=== PATIENT | male | born 1945 | race American Indian/Alaskan Native ===

== ENCOUNTER 2018-01-16 09:33 | Day surgery (SDC) | payer MEDICARE, BC ==
[~2018-01-16] VITALS: Ht 157.5 cm; Wt 72.7 kg
[~2018-01-16 09:33] MED LIST: ASPI81EC PO; BENAML10/2 PO; BENAML10/5 PO; ESZO3 PO; HYDROCODON-ACE1 EACH PO; LEVSOD150 PO; Levothyroxine200 MCG PO; MELO7.5 PO; NYST100SU SS; NYST100TC PO; OFLO.3OTSO BOTHEARS; ONDA4ODT MM; PARO20 PO; ROSU10TA; ROSU10TA PO; TIROSINT75 MCG PO; TOCO1000 PO; [UNRECOGNIZED DRUG - OTHER] PO
[2018-01-16] MEDS ORDERED: LEVSOD100 (09:56)
== END 2018-01-16 11:58 | disposition home or self-care (01) ==
LOC: ORSCSDS 09:33
PROVIDERS: Otolaryngology
PROC: 0D757ZZ Dilation of Esophagus, Via Natural or Artificial Opening (ICD-10-PCS; principal; 2018-01-16 10:45)
DX: K22.2 Esophageal obstruction (principal); I10 Essential (primary) hypertension; Z87.891 Personal history of nicotine dependence; Z79.899 Other long term (current) drug therapy
CPT/HCPCS: J1100; J2250; J3010; J7120

== ENCOUNTER 2018-03-14 09:42 | Day surgery (SDC) | payer MEDICARE, BC ==
[~2018-03-14] VITALS: Ht 177.8 cm; Wt 73.1 kg
[~2018-03-14 09:42] MED LIST changes: +LEVSOD100
[2018-03-14] MEDS ORDERED: LEVO-T150 MCG PO (10:13)
== END 2018-03-14 13:10 | disposition home or self-care (01) ==
LOC: ORSCSDS 09:42
PROVIDERS: Otolaryngology
PROC: 0D757ZZ Dilation of Esophagus, Via Natural or Artificial Opening (ICD-10-PCS; principal; 2018-03-14 11:15)
DX: K22.2 Esophageal obstruction (principal); Z93.0 Tracheostomy status; I10 Essential (primary) hypertension; Z85.21 Personal history of malignant neoplasm of larynx; Z87.891 Personal history of nicotine dependence; Z79.899 Other long term (current) drug therapy
CPT/HCPCS: J1100; J2250; J2405; J3010; J7120

== ENCOUNTER 2018-08-27 01:56 | Inpatient (IN) | payer MEDICARE, BC ==
[~2018-08-27] VITALS: Ht 167.6 cm; Wt 73.4 kg
[~2018-08-27 01:56] MED LIST changes: -BENAML10/5 PO; +LEVO-T150 MCG PO; +Lotrel 10-20 M1 EACH PO
[2018-08-27 02:09] LABS: PCO2 Arterial 46.6 mmHg (35-45); PO2 Arterial 269 mmHg (80-100); pH Blood Arterial 7.24 (7.35-7.45)
[2018-08-27 02:10] LABS: Chloride (POC) 101 mmol/L (98-108); Creatinine (POC) 1.7 mg/dL (0.8-1.3); Glucose (ISTAT POC) 101 mg/dL (70-99); Hemoglobin (POC) 16.7 g/dL (13.5-17.5); Potassium (POC) 4.5 mmol/L (3.5-5.5); Sodium (POC) 137 mmol/L (135-148); Total CO2 (POC) 22 mmol/L (21-32)
[2018-08-27 02:33] LABS: BASOPHILS ABSOLUTE AUTO 0.04 K/mm3 (0.00-0.23); BASOPHILS PERCENT AUTO 1 % (0-2); EOSINOPHILS ABSOLUTE AUTO 0.38 K/mm3 (0.00-0.68); EOSINOPHILS PERCENT AUTO 5 % (0-6); Hematocrit 42.6 % (37.0-53.0); Hemoglobin 14.3 g/dL (13.5-17.5); IMMATURE GRAN ABSOLUTE AUTO 0.02 K/mm3 (0.00-0.10); IMMATURE GRAN PERCENT AUTO 0 % (0-1); LYMPHOCYTES PERCENT AUTO 12 % (21-46); MONOCYTES ABSOLUTE AUTO 0.31 K/mm3 (0.16-1.47); MONOCYTES PERCENT AUTO 4 % (4-13); Mean Corpuscular HGB 31.8 pg (26.0-34.0); Mean Corpuscular HGB Conc 33.6 g/dL (31.5-36.5); Mean Corpuscular Volume 95 fL (80-100); Mean Platelet Volume 9.6 fL (9.1-12.4); NEUTROPHILS ABSOLUTE AUTO 5.84 K/mm3 (1.96-9.15); NEUTROPHILS PERCENT AUTO 78 % (41-73); Platelet Count 165 K/mm3 (150-400); RDW Coefficient Variation 14.6 % (11.7-14.2); RDW Standard Deviation 50.6 fL (35.1-46.3); White Blood Cell Count 7.49 K/mm3 (4.00-11.30)
[2018-08-27 02:53] LABS: Alanine Aminotransfer (ALT/SGP 158 U/L (12-78); Albumin, Blood 4.2 g/dL (3.4-5.0); Albumin/Globulin Ratio 1.2 (0.8-1.8); Alk Phos 378 U/L (50-136); Anion Gap 14 mmol/L (6-16); Aspartate Aminotrans (AST/SGOT 585 U/L (12-37); Bilirubin, Total 0.4 mg/dL (0.1-1.0); Blood Urea Nitrogen 34 mg/dL (8-24); Bun/Creatinine Ratio 19.4 (12.0-20.0); CO2, Blood 19 mmol/L (21-32); Calcium, Blood 8.3 mg/dL (8.5-10.1); Chloride, Blood 102 mmol/L (98-108); Creatinine, Blood 1.75 mg/dL (0.60-1.20); Globulin, Blood 3.6 g/dL (2.2-4.0); Glomerular Filtration Rate 41 (60-); Glucose, Blood 99 mg/dL (70-99); Potassium, Blood 4.6 mmol/L (3.5-5.5); Sodium, Blood 135 mmol/L (136-145); Total Protein, Blood 7.8 g/dL (6.4-8.2); Troponin I <0.015 ng/mL (0.000-0.040)
[2018-08-27] MEDS ORDERED: ANDROGEL2.5 GM TD (02:53)
[2018-08-27] MEDS ORDERED: PAROXETINE ER25 MG PO (02:53)
--- NOTE | 2018-08-27 05:00 | NUR ---
0403 PT ARRIVED TO ICU 7, CARE ASSUMED RESTLESS, CONSCIOUS, NONVERBAL, DOES NOT FOLLOW COMMANDS. WARM, DRY SPO2 > 90%. R ANKLE AREA IV WITH BLOOD RETURNED, FUSHES WELL, ED PERSONNEL UNABLE TO DRAW ENOUGH BLOOD FOR LAB SPEC. MONITOR SR.
--- NOTE | 2018-08-27 09:07 | NUR ---
PT REMAINS SEMI-ALERT, OPENS EYES TO VERBAL STIM W/ STORT PERIODS EYE CONTACT, NO TRUE RESPONSE TO SIMPLE COMMANDS. CORRECTED HEART RHYTHM INTERPRETATION IS AFIB W CONTROLLED VENTRICULAR RESPONSE. SBPs 90s. CBG AT 0645 = 60, D50 ONE AMP GIVEN IV, POST CBG > 120. SPONTANEOUS COUGH INCRASINGLY PRODUCTIVE THIN YELLOW, INITIALLY SUCTIONED TRACHEOSTOMY/ SENIOR CAREGIVER, COUGH STRONG, CLEARING SPUTUM TO PERISTOMAL AREA, REMOVED W 2X2 GAUZE. WARM HUMIDITY W/OUT SUPPLEMENTAL O2 CONTINUED, SPO2 > 90 WHEN WAVEFORM APPROPRIATE. IV D5 1/2NS + 40 KCL @ 100CC/HR, INCON'T X 2 CLEAR URINE. AM LACTATE LEVEL DRAWN AFTER MUCH DIFFICULTY.
--- NOTE | 2018-08-27 10:00 | NUR ---
ASSUMED CARE OF PATIENT PATIENT RESPONDS TO VERBAL STIMULI. PATIENT HAS DECREASED LOC, NONVERBAL. PATIENT HAS GROSS MOVEMENT OF EXTREMITIES. PATIENT HAS OCCASIONAL MUSCLE TWITCHES. EYES SEEM TO SHIFT SIDE TO SIDE OFF AND ON. PATIENT ON 21% HUMIFIED O2 TO OPEN STOMA VIA TRACH STOMA. PATIENT COUGHING UP LARGE AMOUNTS OF THIN, YELLOW SPUTUM. PATIENT SR TO ST, HR 90S TO 1-TEENS. PATIENT HYPOTENSIVE AND HAS BEEN GETTING NS BOLUSED BY PREVIOUS NURSE. GI WNL. PATIENT INCONTINENT OF URINE- ATTENDS IN PLACE. URINE YELLOW IN COLOR. SCATTERED SCABS TO BLES. D5W 1/2 NS KCL 40 INFUSING AT 100 MLS/ HOUR. BED LOW, CALL LIGHT IN REACH. WILL CONTINUE TO MONITOR PATIENT FREQUENTLY THROUGHOUT SHIFT.
[2018-08-27 10:47] LABS: Phosphorus, Blood 2.5 mg/dL (2.5-4.9)
[2018-08-27 11:20] LABS: PCO2 Arterial 32.7 mmHg (35-45); pH Blood Arterial 7.36 (7.35-7.45)
[2018-08-27 11:21] LABS: PO2 Arterial 42.6 mmHg (80-100)
--- NOTE | 2018-08-27 14:04 | NUR ---
PATIENT INTUBATED INTO TRACH.
--- NOTE | 2018-08-27 14:05 | NUR ---
CALLED AND INFORMED THAT DOCTOR IS GOING TO INTUBATE INTO STOMA AT THIS TIME.
[2018-08-27 14:14] LABS: Source, Urine Catheter
[2018-08-27 14:37] LABS: Bilirubin, Urine Neg (Neg); Blood, Urine 4+ (Neg); Glucose Qualitative, Urine Neg (Neg); Ketones, Urine Neg (Neg); Leukocyte Esterase, Urine Neg (Neg); Nitrite, Urine Neg (Neg); Protein, Urine Neg (Neg); Urobilinogen, Urine NORM (Normal)
[2018-08-27 14:52] LABS: Appearance, Urine Clear (Clear); Color, Urine Yellow (P-Yellow)
[2018-08-27 14:53] LABS: Bacteria Not Seen /hpf; Squamous Epithelial Cells Not Seen /hpf (Few)
[2018-08-27 14:54] LABS: White Blood Cells, Urine 0-2 /hpf (0-5)
[2018-08-27] MEDS ORDERED: PARO20 PO (15:22)
[2018-08-27] MEDS ORDERED: ESZO3 PO (15:23)
[2018-08-27] MEDS ORDERED: K-Dur20 MEQ PO (15:24)
--- NOTE | 2018-08-27 15:26 | NUR ---
NURSE UPATED DOCTOR ON PATIENT STATUS.
[2018-08-27 16:03] LABS: PCO2 Arterial 36.5 mmHg (35-45)
[2018-08-27 16:04] LABS: pH Blood Arterial 7.28 (7.35-7.45)
--- NOTE | 2018-08-27 17:05 | NUR ---
DR. MCCRAY NOTIFIED OF PATIENT'S BS OF 69. NO ORDER GIVEN AT THIS TIME. WILL CONTINUE TO MONITOR.
[2018-08-27 18:30] LABS: Hematocrit 33.2 % (37.0-53.0); Hemoglobin 11.2 g/dL (13.5-17.5)
--- NOTE | 2018-08-27 19:15 | NUR ---
ASSUMED CARE OF PT. PT ON MECHANICAL VENTILATION WITH HOME TRACH IN PLACE. VENT SETTINGS AC 14/500/12/100%. LEVOPHED @ 20 MCG/MIN, VASOPRESSIN 0.04 UNITS/MIN, EPINEPHRINE 2 MCG/MIN, D10 @150 ML/HR, AND NS @300 ML/HR. PT OPENS EYES TO VERBAL AND PAINFUL STIMULI BUT IS UNABLE TO FOLLOW COMMANDS. PT APPEARS PALE AND SKIN IS COOL TO THE TOUCH. JEFFREY TEMP PATENT AND DRAINING CLEAR YELLOW URINE. RIGHT SUBCLAVIAN CENTRAL LINE PATENT AND INFUSING. SEE FULL SHIFT ASSESSMENT.
--- NOTE | 2018-08-27 19:30 | NUR ---
SHIFT SUMMARY PATIENT REMAINS RESPONDING TO VERBAL STIMULI. PATIENT CONTINUES NOT TO FOLLOW ANY COMMANDS. PATIENT CONTINUES TO LOCALIZE MOVEMENTS. PATIENT CONTINUES TO BE NONVERBAL. PATIENT STARES AT PERSON ASKING QUESTIONS BUT DOES NOT TRY TO RESPOND IN ANY WAY. REPORTS THAT PATIENT IS NONVERBAL AT BASELINE BUT USUALLY USES GESTURES TO RESPOND. OCCASIONAL MUSCLE TREMORS AND NYSTAGMUS NOTED WHEN NURSE TOOK OVER SHIFT AROUND 1000- THIS HAS NOT BEEN NOTICED LATER IN SHIFT. REPORTS THAT PATIENT HAS CHRONIC BACK PAIN AND INSTEAD OF TAKING PAIN MEDICATIONS HAS BEEN DRINKING ALCOHOL AT HOME. PRN FENTANYL BEING GIVEN FOR PAIN. PATIENT HAD TMAX OF 99.3 DEGREES FAHRENHEIT. PATIENT ON 21% HUMIDIFIED O2 VIA TRACH COLLAR TO OPEN STOMA THIS AM. SATURATIONS 70S TO 80S T/O SHIFT. AFTER SPEAKING WITH , PATIENT INTUBATED. PATIENT ON AC 14, TV 500, PEEP 12, FIO2 100%. PEEP INCREASED FROM 8 TO 12 TO TRY AND INCREASE O2 SATS. 02 REMAINS IN 80S- DR. MCCRAY AWARE. DR. MCCRAY STATED O2 86% AND GREATER IS OKAY. LUNGS REMAINED CLEAR T/O, DIMINISHED IN LOWER LOBES. PATIENT HAS BEEN COUGHING UP LARGE AMOUNTS OF THIN, YELLOW SECRETIONS. PATIENT HAS BEEN SB TO ST THIS SHIFT. HR RANGED FROM 40S TO 1-TEENS. PATIENT HAS REMAINED HYPOTENSIVE MOST OF THE SHIFT. CENTRAL LINE AND PRESSORS STARTED DURING SHIFT. CVP OF 8-10. PULSES 1+ IN STRENGTH. SCDS IN PLACE. GI WNL. DATE OF LAST BM UNKNOWN. TEMP PROBE JEFFREY INSERTED DURING SHIFT- PATIENT HAD ADEQUATE AMOUNT OF YELLOW URINE OUT. URINE CULTURE SENT. NO CHANGE TO SKIN. D10 INFUSING AT 150 MLS/ HOUR, NS AT 300 MLS/ HOUR, LEVOPHED AT 20 MCG/ MINUTE, VASOPRESSIN AT 0.04 UNITS/ MINUTE, EPINEPHRINE AT 2 MCG/ KG/ MINUTE. ABDOMINAL US AND ECHO PERFORMED DURING SHIFT. BLOOD SUGARS HAVE REMAINED LOW T/O SHIFT. PATIENT RECEIVED [address] MCCRAY OKAY WITH BLOOD SUGARS OVER 60. PATIENT HAS NO SIGNS OF PAIN AT THIS TIME. BED LOW, CALL LIGHT IN REACH. WENT HOME FOR A LITTLE BUT STATED SHE WILL BE BACK TONIGHT. REPORT HAS BEEN GIVEN TO ARCHITECT NURSES.
[2018-08-27 20:57] LABS: PCO2 Arterial 38.7 mmHg (35-45); PO2 Arterial 106 mmHg (80-100); pH Blood Arterial 7.23 (7.35-7.45)
--- NOTE | 2018-08-27 23:12 | NUR ---
PT APPEARS MUCH MORE ALERT. PT SQUEEZED THIS NURSE'S HAND WITH HIS RIGHT HAND WHEN ASKED, AND SQUEEZED HIS 'S HAND WITH HIS LEFT HAND. PT OPENED HIS EYES AND MOVED HIS EYES TOWARD VERBAL STIMULI. PT'S WAS TALKING TO PT AND TELLING HIM SHE LOVED HIM AND PT APPEARED TO TRY TO MOUTH "I LOVE YOU" BACK.
[2018-08-28] MEDS ORDERED: DEXAMETHASONE BOTHEYES (00:29)
[2018-08-28] MEDS ORDERED: TOBRAMYCIN BOTHEYES (00:29)
--- NOTE | 2018-08-28 01:29 | NUR ---
SPOKE WITH DR MCCRAY REGARDING PT'S INCREASED URINARY OUTPUT. PT HAS HAD 3950 ML'S OF CLEAR YELLOW URINE THIS SHIFT SO FAR.
[2018-08-28 03:37] LABS: Hematocrit 33.7 % (37.0-53.0); Hemoglobin 11.8 g/dL (13.5-17.5); Mean Corpuscular HGB 32.2 pg (26.0-34.0); Mean Platelet Volume 10.2 fL (9.1-12.4); Platelet Count 142 K/mm3 (150-400); RDW Coefficient Variation 14.2 % (11.7-14.2); RDW Standard Deviation 48.4 fL (35.1-46.3); Red Blood Cell Count 3.67 M/mm3 (4.30-5.90); White Blood Cell Count 9.98 K/mm3 (4.00-11.30)
[2018-08-28 03:41] LABS: Mean Corpuscular Volume 92 fL (80-100)
[2018-08-28 03:56] LABS: BAND PERCENT MAN 39 % (0-8); BASOPHILS PERCENT MAN 0 % (0-2); EOSINOPHILS ABSOLUTE MAN 0.09 K/mm3 (0.00-0.68); EOSINOPHILS PERCENT MAN 1 % (0-6); LYMPHOCYTES ABSOLUTE MAN 0.49 K/mm3 (0.84-5.20); LYMPHOCYTES PERCENT MAN 5 % (21-46); METAMYELOCYTE ABSOLUTE MAN 0.09 K/mm3 (0.00-0.00); METAMYELOCYTE PERCENT MAN 1 % (0-0); MONOCYTES ABSOLUTE MAN 0.09 K/mm3 (0.16-1.47); MONOCYTES PERCENT MAN 1 % (4-13); MYELOCYTE ABSOLUTE MAN 0.09 K/mm3 (0.00-0.00); MYELOCYTE PERCENT MAN 1 % (0-0); NEUTROPHILS ABSOLUTE MAN 9.08 K/mm3 (1.96-9.15); SEG NEUTROPHILS PERCENT MAN 52 % (41-73); TOTAL CELLS COUNTED 100
[2018-08-28 04:25] LABS: Albumin, Blood 3.2 g/dL (3.4-5.0); Albumin/Globulin Ratio 1.2 (0.8-1.8); Bilirubin, Total 0.6 mg/dL (0.1-1.0); Bun/Creatinine Ratio 14.3 (12.0-20.0); Creatinine, Blood 1.47 mg/dL (0.60-1.20); Globulin, Blood 2.6 g/dL (2.2-4.0); Potassium, Blood 3.4 mmol/L (3.5-5.5)
[2018-08-28 04:43] LABS: Calcium, Blood 5.9 mg/dL (8.5-10.1); Total Protein, Blood 5.8 g/dL (6.4-8.2)
[2018-08-28 04:45] LABS: PCO2 Arterial 39.3 mmHg (35-45); PO2 Arterial 119 mmHg (80-100); pH Blood Arterial 7.35 (7.35-7.45)
[2018-08-28 05:00] LABS: Magnesium, Blood 1.2 mg/dL (1.6-2.4); Phosphorus, Blood 1.9 mg/dL (2.5-4.9)
--- NOTE | 2018-08-28 05:15 | NUR ---
SPOKE WITH DR MCCRAY REGARDING PT'S MORNING LAB RESULTS. VERBAL ORDERS RECEIVED AND ENTERED.
--- NOTE | 2018-08-28 06:33 | NUR ---
PT CONTINUES TO BE ON MECHANICAL VENTILATION AC 14/500/12/70%. PT'S ABG'S SHOW GOOD IMPROVEMENT AND FI02 WAS ABLE TO BE WEANED FROM 100% TO 70%. PT CONTINUES TO RESPOND TO VERBAL AND PAINFUL STIMULI AND ABLE TO MOSTLY FOLLOW COMMANDS. CBG'S IN THE UPPER 100'S TO LOW 200'S. RIGHT FEMORAL ART LINE, RIGHT SUBCLAVIAN CENTRAL LINE AND RIGHT HAND PERIPHERAL LINE INFUSING. TEMP JEFFREY PATENT AND DRAINING CLEAR, PALE YELLOW URINE. PT HAD 5350 ML OF URINARY OUTPUT THIS SHIFT. PT HAD ONE EPISODE OF VOMITING, WILL REQUEST DAYSHIFT TO INSERT NG OR OG TUBE TO PREVENT ASPIRATION. VASOPRESSIN RUNNING @ 0.04 UNITS/MIN, LEVOPHED 17 MCG/MIN, BICARB @ 75 ML/HR. WILL REPORT TO DAYSHIFT NURSE.
--- NOTE | 2018-08-28 07:45 | NUR ---
INITIAL ASSESSMENT PATIENT LYING IN BED QUIETLY UPON ENTERING ROOM. PATIENT HAS NO SIGNS OF PAIN OR DISCOMFORT. PATIENT HAS CORE TEMP OF 99.1 DEGREES FAHRENHEIT. PATIENT RESPONDS TO VERBAL STIMULI AND TRACKS WITH EYES. PATIENT IS NOT FOLLOWING COMMANDS AT THIS TIME. PATIENT NONVERBAL. ACCORDING TO , PATIENT IS NONVERBAL AND GESTURES AT BASELINE. + BABINSKI REFLEXES. GROSS MOVEMENTS OF ALL EXTREMITIES. PATIENT TRACHEALLY INTUBATED AND SATTING WELL ON AC 14, TV 500, PEEP 12, 70% FIO2. TRACH TUBE IS NON-FENESTRATED AND IS CUFFED, 6.0. LUNGS CLEAR T/O, LOWER LOBES DIMINISHED. MODERATE TO LARGE AMOUNTS OF THIN, ENG SPUTUM BEING SUCTIONED FROM TRACH. PATIENT IN NSR, HR IN THE 70S. BP HAS BEEN STABLE ON PRESSORS. PULSES 1+ IN STRENGTH. SCDS IN PLACE. ABDOMEN MILDLY DISTENDED WITH HYPOACTIVE BS. TEMP PROBE JEFFREY DRAINING LARGE AMOUNTS OF CLEAR, YELLOW URINE. SKIN COOL AND PALE. SCATTERED SCABS TO BLES. NS TKO, D10 AT 75 MLS/ HOUR, LEVOPHED AT 14 MCG/ MINUTE, VASOPRESSIN AT 0.04 UNITS/ MINUTE, EPINEPHRINE OFF, SODIUM BICARB AT 150 MLS/ HOUR. PATIENT RECIEVING MANY ELECTROLYTE REPLACEMENTS THIS AM AND IS HAS ALSO BEEN RECEIVING ANTIBIOTICS. LEFT SHORT TIME AGO. BED LOW, CALL LIGHT IN REACH. WILL CONTINUE TO MONITOR PATIENT FREQUENTLY THROUGHOUT SHIFT.
--- NOTE | 2018-08-28 08:00 | NUR ---
DR. WASHINGTON IN TO SEE PATIENT THIS AM. UPDATED ON PATIENT STATUS. NO ORDERS RECEIVED AT THIS TIME.
--- NOTE | 2018-08-28 09:58 | NUR ---
DR. MCCRAY IN TO SEE PATIENT. DOCTOR UPDATED ON PATIENT STATUS. INFORMED OF INCREASED BLOOD SUGARS, FIO2 OF 70% ON VENT, THAT PATIENT VOMITED LAST NIGHT, THAT D10 SHUT OFF, AND CURRENT PRESSORS INFUSING. ORDERS RECEIVED.
[2018-08-28 12:06] LABS: BASOPHILS ABSOLUTE AUTO 0.04 K/mm3 (0.00-0.23); BASOPHILS PERCENT AUTO 0 % (0-2); EOSINOPHILS PERCENT AUTO 1 % (0-6); Hematocrit 33.1 % (37.0-53.0); Hemoglobin 12.1 g/dL (13.5-17.5); Mean Corpuscular HGB 32.4 pg (26.0-34.0); Mean Corpuscular HGB Conc 36.6 g/dL (31.5-36.5); Mean Platelet Volume 10.2 fL (9.1-12.4); Platelet Count 133 K/mm3 (150-400); RDW Coefficient Variation 13.9 % (11.7-14.2); RDW Standard Deviation 45.1 fL (35.1-46.3); Red Blood Cell Count 3.73 M/mm3 (4.30-5.90); White Blood Cell Count 12.16 K/mm3 (4.00-11.30)
--- NOTE | 2018-08-28 12:20 | NUR ---
PATIENT RESTING QUIETLY IN BED WITH NO SIGNS OF PAIN. PATIETN SATTING WELL ON AC 14, TV 500, PEEP 12, FIO2 50%. SPUTUM HAS DECREASED IN QUANTITIY. HR IN THE 70S. BP STABLE ON LEVOPHED OF 12 MCG/ HOUR AND VASOPRESSIN AT 0.04 UNITS/ MINUTE. L PUPIL SLUGGISH IN REACTION. NO OTHER CHANGES TO NEURO STATUS. BS OF 161. NO OTHER CHANGES TO NOTE ON AT THIS TIME. WILL CONTINUE TO MONITOR.
[2018-08-28 12:29] LABS: IMMATURE GRAN ABSOLUTE AUTO 0.09 K/mm3 (0.00-0.10); IMMATURE GRAN PERCENT AUTO 1 % (0-1); LYMPHOCYTES PERCENT AUTO 6 % (21-46); MONOCYTES ABSOLUTE AUTO 0.16 K/mm3 (0.16-1.47); MONOCYTES PERCENT AUTO 1 % (4-13); Mean Corpuscular Volume 89 fL (80-100); NEUTROPHILS ABSOLUTE AUTO 11.07 K/mm3 (1.96-9.15); NEUTROPHILS PERCENT AUTO 91 % (41-73)
[2018-08-28 12:43] LABS: BAND PERCENT MAN 38 % (0-8); BASOPHILS PERCENT MAN 0 % (0-2); EOSINOPHILS ABSOLUTE MAN 0.24 K/mm3 (0.00-0.68); EOSINOPHILS PERCENT MAN 2 % (0-6); LYMPHOCYTES ABSOLUTE MAN 0.48 K/mm3 (0.84-5.20); LYMPHOCYTES PERCENT MAN 4 % (21-46); METAMYELOCYTE ABSOLUTE MAN 0.12 K/mm3 (0.00-0.00); METAMYELOCYTE PERCENT MAN 1 % (0-0); MONOCYTES PERCENT MAN 0 % (4-13); SEG NEUTROPHILS PERCENT MAN 55 % (41-73); TOTAL CELLS COUNTED 100
--- NOTE | 2018-08-28 16:28 | NUR ---
PATIENT BACK FROM ABDOMINAL CT. TOLERATED WELL.
--- NOTE | 2018-08-28 16:28 | NUR ---
PATIENT RESTING QUIETLY IN BED. VSS. NO ACUTE CHANGES. WILL CONTINUE TO MONITOR.
--- NOTE | 2018-08-28 19:10 | NUR ---
ASSUMING CARE OF PT AT THIS TIME. PT REPORT RECEIVED AT BEDSIDE WITH OFFGOING NURSE, LAWRENCE BOWEN. PT LAYING IN BED, INTUBATED. VS STABLE - SEE VS FS. PT DOES NOT APPEAR TO BE IN DISTRESS AT THIS TIME. NO FAMILY AT BEDSIDE. WILL REVIEW PLAN OF CARE.
--- NOTE | 2018-08-28 19:15 | NUR ---
ASSESSMENT PT CALM, RESPONDS TO VERBAL STIMULI, TRACKING VOICE, OPENS EYES TO VERBAL STIMULI, DOES NOT FOLLOW COMMANDS, DOES NOT NOD HEAD Y/N TO QUESTIONS, + BABINSKI. NO SEDATION. UNABLE TO ASSESS SENSATION. PT ROSARIO. GROSS, WEAK MOVEMENT NOTED. S/SX OF PAIN/DISCOMFORT NOTED (FACIAL GRIMACING AND RESTLESSNESS IN BED). MEDICATED WITH FENT PER PHYSICIAN'S ORDER / UTIILIZE NONPHARM METHODS. EEG SCHEDULED FOR TOMORROW. BEDBATH COMPLETED PRIOR TO ONCOMING SHIFT. LUNGS COARSE, DIMINISHED LOWER LOBES. TRACH. VENT SETTINGS: AC 14, TV 500, PEEP 10, FIO2 50%. MARGUERITE, RT PLANNING TO DECREASE PEEP. SUCTION VIA TRACH: SMALL AMOUNTS OF THIN YELLOW SECRETIONS. TEMP 99.0 - ROOM TEMP TURNED DOWN, BLANKETS OFF, FANS OFF. NSR. HR 70'S. BP STABLE - SEE VS FS. LEVOPHED DRIP 10 MCG/MIN - WILL TITRATE TO EFFECT. VASOPRESSING 0.04 UNITS/MIN - WILL TITRATE TO EFFECT. FAINT PULSES. COOL, PALE SKIN. HYPOACTIVE BT X4 QUADRANTS. ABD MILD DIST, SOFT, NONTENDER. NG IN PLACE. NG TO LIS: LIGHT YELLOW/GREEN SECRETIONS NOTED. ORAL CARE: MOD AMOUNTS OF LIGHT YELLOW SECRETIONS NOTED. F/C IN PLACE - YELLOW, CLEAR URINE NOTED. PIV X1. CENTRAL LINE RIGHT SUBCLAVIAN. ARTERIAL LINE RIGHT FEMORAL ARTERY.
--- NOTE | 2018-08-28 19:30 | NUR ---
SHIFT ASSESSMENT NO CHANGE IN NEURO STATUS T/O SHIFT. PATIENT CONTINUED TO FOLLOW VOICE. PATIENT RESUMES NOT FOLLOWING COMMANDS. PATIENT HAS GROSS MOVEMENT OF EXTREMITIES. PATIENT HAD TMAX OF 100 DEGREES FAHRENHEIT. PATIENT GIVEN PRN FENTANYL OT DURING SHIFT FOR FROWNING OF BROWS. PATIENT DOWN TO 50% FIO2 ON VENT AND PEEP OF 10 FROM 12. PATIENT HAVING SMALL AMOUNTS OF THIN, ENG SPUTUM FROM TRACH. SPUTUM FOUL SMELLING. PATIENT REMIANED IN NSR, HR 60S TO 80S. BP REMAINED STABLE ON PRESSORS. ABDOMEN HAS HYPOACTIVE BS. NG ATTACHED TO LIS- GREEN LIQUID DRAINING. PATIENT HAS VOMITUS COME UP THROUGH L NOSTRIL TWICE DURING SHIFT. TEMP PROBE JEFFREY DRAINING LARGE AMOUNTS OF CLEAR URINE. NO CHANGE TO SKIN. PATIENT REPOSITIONED T/O SHIFT. LEVOPHED INFUSING AT 10 MCG/ MINUTE, VASOPRESSIN AT 0.04 UNITS/ MINUTE, NS TKO, SODIUM BICARB AT 150 MLS/ HOUR. ABDOMINAL CT PERFORMED THIS SHIFT. PATIENT RECEIVED BED BATH. BLOOD SUGARS STABLE. BED LOW, FILIBERTO LIGHT IN REACH. REPORT GIVEN TO EXPERIENCED TRUCK DRIVER NURSE.
--- NOTE | 2018-08-28 21:00 | NUR ---
DR. MAHENDRA MCCRAY ORDERED ELECTROLYTE PROTOCOL, STAT LABS, AND AM LABS.
[2018-08-28 21:30] LABS: Albumin, Blood 3.5 g/dL (3.4-5.0); Anion Gap 12 mmol/L (6-16); Blood Urea Nitrogen 14 mg/dL (8-24); Bun/Creatinine Ratio 10.1 (12.0-20.0); CO2, Blood 32 mmol/L (21-32); Calcium, Blood 7.6 mg/dL (8.5-10.1); Chloride, Blood 79 mmol/L (98-108); Creatinine, Blood 1.38 mg/dL (0.60-1.20); Glomerular Filtration Rate 54 (60-); Glucose, Blood 143 mg/dL (70-99); Magnesium, Blood 1.3 mg/dL (1.6-2.4); Phosphorus, Blood 1.8 mg/dL (2.5-4.9); Potassium, Blood 3.1 mmol/L (3.5-5.5); Sodium, Blood 123 mmol/L (136-145)
--- NOTE | 2018-08-28 22:00 | NUR ---
DR. MCCRAY / ELECTROLYTE PROTOCOL ORDERED MAGNESIUM SULFATE 4,000 MG AND POTASSIUM PHOSHATE 30 MM PER ELECTROLYTLE PROTOCOL. VERIFIED MEDICATION ORDERS WITH JESSI REAL. CALLED DR MCCRAY AT [id number]. INFORMED DR. MCCRAY OF LABS. DR. MCCRAY ORDERED 500 ML NS BOLUS FOR DECREASING SODIUM. DR. MCCRAY INSTRUCTED TO REPEAT LABS AFTER COMPLETION OF MAGNESIUM SULFATE IVPB, POTASSIUM PHOS IVPB, AND NS BOLUS. WAITING FOR MEDICATIONS FROM PHARMACY AT THIS TIME.
--- NOTE | 2018-08-28 23:55 | NUR ---
PT CARE / VENT SETTINGS LUNGS CLEAR, LOWER LOBES DIMINISHED. COARSENESS CLEARS WITH SUCTION. SUCTION VIA TRACH: SMALL AMOUNTS OF THIN YELLOW SECRETIONS. MARGUERITE RT ATTEMPTED TO DECREASED PEEP TO 5 WHILE ON FIO2 50%. OXY SAT <90% WHILE ON AC 14, TV 500, PEEP 5, FIO2 50%. MARGUERITE RT INCREASED FIO2 65%, BUT OXY SAT REMAIEND <90%. MARGUERITE RT INCREASED PEEP 8, FIO2 REMAINS 65%, OXY SAT 90% AND GREATER AT THIS TIME. CURRENTLY, LUNGS CLEAR, LOWER LOBES DIMINISHED, WHEEZING NOTED. PER MARGUERITE RT - UNABLE TO COMPLETE SBT D/T PEEP 8, FIO2 65%. WILL CONT TO TITRATE FIO2 TO MAINTAIN SPO2.
--- NOTE | 2018-08-29 00:11 | NUR ---
PT CARE / VENT SETTINGS WHILE ON VENT SETTINGS: AC 14, TV 500, PEEP 8, AND FIO2 70%, OXYGEN SATURATION <90%. MARGUERITE, RT INCREASED PEEP TO 10, FIO2 70%. OXY SAT CURRENTLY 88% AND GREATER.
--- NOTE | 2018-08-29 04:38 | NUR ---
SHIFT ASSESSMENT NO ACUTE CHANGES NOTED T/O SHIFT. PT CALM, OCC AGITATION & RESTLESSNESS NOTED WITH PT CARE, RESPONDS TO VERBAL STIMULI, TRACKING VOICE, OPENS EYES TO VERBAL STIMULI, DOES NOT FOLLOW COMMANDS, + BABINSKI. NO SEDATION. PT ROSARIO. GROSS, WEAK MOVEMENT. OCC S/SX OF PAIN/DISCOMFORT NOTED (FACIAL GRIMACING AND RESTLESSNESS IN BED). CONT TO ASSESS FOR PAIN/DISCOMFORT AND MEDICATED WITH FENT PER PHYSICIAN'S ORDER / UTILIZED NONPHARM METHODS. LUNGS CLEAR, DIMINISHED LOWER LOBES. OCC WHEEZING. OCC COARSENESS NOTED THAT CLEARS WITH SUCTION. CURRENT VENT SETTINGS: AC 14, TV 500, PEEP 8, FIO2 35%. CONTINUED TO TITRATE FIO2 TO MAINTAIN SPO2. RR 14 TO 20'S T/O SHIFT. CONTINUED TO TITRATE FIO2 TO MAINTAIN SPO2 90% AND GREATER. TRACH MIGRATED OUT TOWARDS STOMA WITH TV <300. TREVON RT AND MARGUERITE RT INFORMED AND REPOSITIONED TRACH - SEE MARGUERITE RT NOTE. CURRENTLY, SUCTION VIA ETT IS MODERATE AMOUNTS OF THICK RED SECRETIONS. TMAX 100.0 - ROOM TEMP TURNED DOWN, BLANKETS OFF, FANS ON. NSR. HR 60'S TO 70'S. CONTINUED TO TITRATE LEVOPHED TO MAINTAIN BP. LEVOPHED DRIP 6 MCG/MIN - CONTINUED TO TITRATE TO EFFECT. VASOPRESSIN 0.04 UNITS/MIN - CONTINUED TO TITRATE TO EFFECT. FAINT PULSES. COOL, PALE SKIN. HYPOACTIVE BT X4 QUADRANTS. ABD MILD DIST, SOFT, NONTENDER. NG IN PLACE. NG TO LIS: LIGHT YELLOW/GREEN SECRETIONS NOTED SHIFT EXCEPT ORANGE SECRETIONS NOTED AFTER REPOSITIONING TRACH. F/C IN PLACE - YELLOW, CLEAR URINE NOTED. PIV X1. CL RIGHT SUBCLAVIAN. ARTIAL LINE RIGHT FEMORAL ARTERY. SODIUM BICARBONATE AT 150 ML/HR. NS TKO AT 10 ML/HR. CHEST XRAY COMPLETED. AM LABS COMPLETED - WAITING FOR RESULTS AT THIS TIME. WILL CONT TO MONITOR PT AND WILL PROVIDE BEDSIDE REPORT TO ONCOMING NURSE THIS AM.
[2018-08-29 04:44] LABS: BASOPHILS ABSOLUTE AUTO 0.04 K/mm3 (0.00-0.23); BASOPHILS PERCENT AUTO 0 % (0-2); EOSINOPHILS ABSOLUTE AUTO 0.11 K/mm3 (0.00-0.68); EOSINOPHILS PERCENT AUTO 1 % (0-6); Hematocrit 32.3 % (37.0-53.0); Hemoglobin 11.8 g/dL (13.5-17.5); IMMATURE GRAN PERCENT AUTO 2 % (0-1); LYMPHOCYTES ABSOLUTE AUTO 0.52 K/mm3 (0.84-5.20); LYMPHOCYTES PERCENT AUTO 4 % (21-46); MONOCYTES ABSOLUTE AUTO 0.12 K/mm3 (0.16-1.47); MONOCYTES PERCENT AUTO 1 % (4-13); Mean Corpuscular HGB 32.2 pg (26.0-34.0); Mean Corpuscular HGB Conc 36.5 g/dL (31.5-36.5); Mean Corpuscular Volume 88 fL (80-100); Mean Platelet Volume 10.2 fL (9.1-12.4); NEUTROPHILS PERCENT AUTO 92 % (41-73); Platelet Count 115 K/mm3 (150-400); RDW Coefficient Variation 13.6 % (11.7-14.2); RDW Standard Deviation 44.3 fL (35.1-46.3); Red Blood Cell Count 3.66 M/mm3 (4.30-5.90); White Blood Cell Count 12.39 K/mm3 (4.00-11.30)
[2018-08-29 05:01] LABS: Alanine Aminotransfer (ALT/SGP 83 U/L (12-78); Albumin, Blood 3.1 g/dL (3.4-5.0); Albumin/Globulin Ratio 1.1 (0.8-1.8); Alk Phos 149 U/L (50-136); Anion Gap 12 mmol/L (6-16); Aspartate Aminotrans (AST/SGOT 358 U/L (12-37); Bilirubin, Total 1.1 mg/dL (0.1-1.0); Blood Urea Nitrogen 12 mg/dL (8-24); Bun/Creatinine Ratio 9.8 (12.0-20.0); CO2, Blood 32 mmol/L (21-32); Calcium, Blood 7.5 mg/dL (8.5-10.1); Chloride, Blood 77 mmol/L (98-108); Creatinine, Blood 1.22 mg/dL (0.60-1.20); Globulin, Blood 2.9 g/dL (2.2-4.0); Glomerular Filtration Rate >60 (60-); Glucose, Blood 170 mg/dL (70-99); Magnesium, Blood 3.1 mg/dL (1.6-2.4); Phosphorus, Blood 3.4 mg/dL (2.5-4.9); Sodium, Blood 121 mmol/L (136-145)
--- NOTE | 2018-08-29 05:19 | NUR ---
DR. MCCRAY / ELECTROLYTE PROTOCOL ORDERED KCL 40 MEQ PER ELECTROLYTE PROTOCOL. VERIFIED KCL ORDER WITH JESSI OJEDA. CALLED DR. MCCRAY AT 0515. INFORMED DR. MCCRAY OF AM LABS. DR MCCRAY ORDERED 1L NS BOLUS FOR DECREASING SODIUM. DR. MCCRAY ORDERED REPEAT RENAL PANEL AFTER COMPLETION OF 1L NS BOLUS AND KCL IVPB. WAITING FOR VERIFICATION OF MEDICATIONS FROM PHARMACY AND WAITING FOR KCL IVPB FROM PHARMACY. INFORMED DR. MCCRAY OF MIGRATING TRACH - NO NEW ORDERS REGARDING TRACH AT THIS TIME.
--- NOTE | 2018-08-29 05:42 | NUR ---
BLOOD PRESSURE AUTOMATIC BLOOD PRESSURE TAKEN T/O SHIFT ON LEFT ARM TO COMPARE TO ARTERIAL LINE. AUTOMATIC SBP WAS 10-25 MMHG LOWER THAN ARTERIAL LINE READINGS.
--- NOTE | 2018-08-29 07:45 | NUR ---
DR. WASHINGTON IN ROOM TO SEE PATIENT.
--- NOTE | 2018-08-29 08:00 | NUR ---
INITIAL ASSESSMENT PATIENT RESTING QUIETLY IN BED UPON ENTERING ROOM. NO SIGNS OF PAIN OR DISCOMFORT. PATIENT RESPONDS TO VOICE BY LOOKING AT PERSON WHEN THEY ASK HIM TO OPEN HIS EYES. PATIENT IS NOT FOLLOWING ANY OTHER COMMANDS. PATIENT WEAK BUT HAS GROSS MOVEMENTS TO ALL EXTREMITIES. PATIENT NONVERBAL, WHICH IS BASELINE FOR HIM. + BABINKSI REFLEXES NOTED. PATIENT HAS TEMP OF 99.0 DEGREES FAHRENHEIT. PATIENT INTUBATED THROUGH NONFENESTRATED, CUFFED TRACH. NOT ON SEDATION. PATIENT SATTING WELL ON AC 14, TV 500, PEEP 8, FIO2 OF 35%. PATIENT HAVING MODERATE AMOUNT OF THICK, YELLOW SPUTUM FROM TRACH THIS AM. PATIENT IN NSR, HR 60S TO 80S. BP STABLE ON LEVOPHED AND VASOPRESSIN. SCDS IN PLACE. PULSES 1+ IN STRENGTH. ABDOMEN MILDLY DISTENDED, SOFT, NONTENDER, WITH HYPOACTIVE BS. NG TO LIS DRAINING RONNY COLORED FLUID. DATE OF LAST BM UNKNOWN. TEMP PROBE JEFFREY DRAINING LARGE AMOUNTS OF CLEAR YELLOW FLUID. PATIENT HAS SCATTERED SCABS TO BLES. SKIN COOL AND PALE. R HAND SWOLLEN FROM IV THAT INFILTRATED THIS AM. LEVOPHED INFUSING AT 2 MCG/ MINUTE, VASOPRESSIN AT 0.04 UNITS/ MINUTE, NS TKO X 2, SODIUM BICARB AT 150 MLS/ HOUR. PATIENT RECEIVING 40 MEQ KCL THIS AM FOR LOW POTASSIUM. BED LOW, CALL LIGHT IN REACH. WILL CONTINUE TO MONITOR PATIENT FREQUENTLY THROUGHOUT SHIFT.
--- NOTE | 2018-08-29 10:07 | NUR ---
DR. MAST IN ROOM TO SEE PATIENT.
--- NOTE | 2018-08-29 11:33 | NUR ---
DR. TANG IN ROOM TO SEE PATIENT AND TALK TO .
[2018-08-29 11:44] LABS: Magnesium, Blood 2.1 mg/dL (1.6-2.4); Phosphorus, Blood 2.3 mg/dL (2.5-4.9)
--- NOTE | 2018-08-29 12:02 | NUR ---
DR. TANG SPOKE TO DR. MAST AND PLACED ETT DOWN TRACH STOMA, 8.0. PATIENT TOLERATED WELL.
--- NOTE | 2018-08-29 12:30 | NUR ---
INFORMED THAT ETT NEEDS PULLED BACK [address] MAST CALLED AND NOTIFIED BY CHARGE NURSE.
--- NOTE | 2018-08-29 12:46 | NUR ---
PATIENT RESTING IN BED. NO SIGNS OF PAIN OR DISCOMFORT. TEMP OF 99.0 DEGREES FAHRENHEIT. VSS REMAIN STABLE. WILL CONTINUE TO MONITOR.
--- NOTE | 2018-08-29 12:49 | NUR ---
DR. TANG CALLED BY CHARGE NURSE- STATES RT CAN PULL ETT BACK 4 CM.
[2018-08-29 12:58] LABS: Sodium, Urine, Random 67 mmol/L (20-110)
[2018-08-29 13:03] LABS: Vancomycin, Trough 8.6 ug/mL (5.0-10.0)
[2018-08-29 13:16] LABS: BASOPHILS ABSOLUTE AUTO 0.03 K/mm3 (0.00-0.23); BASOPHILS PERCENT AUTO 0 % (0-2); EOSINOPHILS ABSOLUTE AUTO 0.09 K/mm3 (0.00-0.68); EOSINOPHILS PERCENT AUTO 1 % (0-6); Hematocrit 31.8 % (37.0-53.0); Hemoglobin 11.8 g/dL (13.5-17.5); IMMATURE GRAN ABSOLUTE AUTO 0.31 K/mm3 (0.00-0.10); IMMATURE GRAN PERCENT AUTO 3 % (0-1); LYMPHOCYTES ABSOLUTE AUTO 0.44 K/mm3 (0.84-5.20); LYMPHOCYTES PERCENT AUTO 4 % (21-46); MONOCYTES ABSOLUTE AUTO 0.09 K/mm3 (0.16-1.47); MONOCYTES PERCENT AUTO 1 % (4-13); Mean Corpuscular HGB 32.2 pg (26.0-34.0); Mean Corpuscular Volume 87 fL (80-100); NEUTROPHILS ABSOLUTE AUTO 11.33 K/mm3 (1.96-9.15); NEUTROPHILS PERCENT AUTO 92 % (41-73); Platelet Count 109 K/mm3 (150-400); RDW Coefficient Variation 13.4 % (11.7-14.2); RDW Standard Deviation 42.4 fL (35.1-46.3); Red Blood Cell Count 3.67 M/mm3 (4.30-5.90); White Blood Cell Count 12.29 K/mm3 (4.00-11.30)
[2018-08-29 13:18] LABS: Mean Corpuscular HGB Conc 37.1 g/dL (31.5-36.5)
--- NOTE | 2018-08-29 13:27 | NUR ---
ETT MARKED AT APPROXIMATELY 7 CM JUST OUTSIDE STOMA.
[2018-08-29 13:45] LABS: PCO2 Arterial 34.1 mmHg (35-45); pH Blood Arterial 7.53 (7.35-7.45)
[2018-08-29 13:46] LABS: PO2 Arterial 90.4 mmHg (80-100)
[2018-08-29 14:15] LABS: Osmolality, Urine 404 mos/kg (15-1400)
--- NOTE | 2018-08-29 14:33 | NUR ---
DR. HARDWICK HERE TO SEE PATIENT.
[2018-08-29 15:19] LABS: Anion Gap 12 mmol/L (6-16); Blood Urea Nitrogen 10 mg/dL (8-24); Bun/Creatinine Ratio 8.9 (12.0-20.0); CO2, Blood 25 mmol/L (21-32); Calcium, Blood 8.4 mg/dL (8.5-10.1); Chloride, Blood 84 mmol/L (98-108); Creatinine, Blood 1.12 mg/dL (0.60-1.20); Glomerular Filtration Rate >60 (60-); Glucose, Blood 108 mg/dL (70-99); Magnesium, Blood 1.9 mg/dL (1.6-2.4); Phosphorus, Blood 2.3 mg/dL (2.5-4.9); Potassium, Blood 2.7 mmol/L (3.5-5.5); Sodium, Blood 121 mmol/L (136-145)
--- NOTE | 2018-08-29 19:14 | NUR ---
SHIFT SUMMARY PATIENT HAD NO CHANGES IN NEURO STATUS. PATIENT SEEMS TO GRIMACE IF IN MORE PAIN TODAY- PRN PAIN MEDICATIONS GIVEN. RESTRAINTS REMOVED AT END OF SHIFT PATIENT HAS NOT BEEN GRABBING FOR TUBE OR LINES. PATIENT HAD TMAX OF 99.[address] TANG AND DR. HARDWICK CONSULTED ON PATIENT TODAY. PATIENT TRACH TUBE CHANGED TO 8.0 ETT DOWN TRACH STOMA BY DR. TANG. TUBE AT APPROXIMATELY 7 CM AT OUTSIDE OF STOMA. TV DECREASED FROM 500 TO 400 AND PATIENT SATTING WELL ON 35% FIO2. PATIENT BP STAYED STABLE ON PRESSORS. VASOPRESSIN DC'D PER DR. HARDWICK- PATIENT NOW JUST ON LEVOPHED FOR BP. CVP AT BEGINNING OF THE SHIFT WAS 4. PATIENT VOIDING OUT LARGE AMOUNTS OF CLEAR YELLOW URINE. NG HAD LESS FLUID OUT TODAY- ORANGE IN COLOR. PATIENT HAD NO EMESIS ON THIS SHIFT. PATIENT DID NOT HAVE BM THIS SHIFT. NO CHANGE IN SKIN. PATIENT REPOSITIONED T/O SHIFT. LEVOPHED INFUSING AT 12 MCG/ MINUTE, NS AT 150 MLS/ HOUR, NS TKO. PATIENT RECEIVED MANY ELECTROLYTE REPLACEMENTS DURING DAY. PATIENT ALSO RECEIVING ANTIBIOTICS. BLOOD SUGARS REMAINED STABLE. EEG PERFORMED. PATIENT HAD BED BATH. IN AND OUT DURING DAY- STATED SHE WILL GO HOME TO GET SOME REST AND BE BACK IN THE MORNING. BED LOW, CALL LIGHT IN REACH. REPORT HAS BEEN GIVEN TO ASSUMING NURSE, CECI GILL.
--- NOTE | 2018-08-29 19:15 | NUR ---
ASSUMING CARE OF PT AT THIS TIME. PT REPORT RECEIVED AT BEDSIDE WITH OFFGOING NURSE, LAWRENCE BOWEN. PT LAYING IN BED, INTUBATED. VS STABLE - SEE VS FS. PT DOES NOT APPEAR TO BE IN DISTRESS AT THIS TIME. WILL REVIEW PLAN OF CARE.
--- NOTE | 2018-08-29 19:30 | NUR ---
ASSESSMENT PT CALM, RESPONDS TO VERBAL STIMULI, TRACKING VOICE, OPENS EYES TO VERBAL STIMULI, DOES NOT FOLLOW COMMANDS, DOES NOT HEAD Y/N TO QUESTIONS, + BABINSKI. NO SEDATION. UNABLE TO ASSESS SENSATOIN. PT ROSARIO. GROSS, WEAK MOVMENT NOTED. S/SX OF PAIN/DISCOMFORT NOTED (FACIAL GRIMACING AND RESTLESSNESS IN BED). MEDICATED WITH FENT PER PHYSICIAN'S ORDER / UTILIZE NONPHARM METHODS. EGG COMPLETED THIS AM. BEDBATH COMPLETED PRIOR TO ONCOMING SHIFT. LUNGS COARSE, DIMINIHSHED LOWER LOBES. VENT SETTINGS: AC 14, TV 400, PEEP 8, FIO2 35%. PER REPORT, DR. TANG REMOVED TRACH TODAY AND INSERTED ETT VIA STOMA. OXY SAT >90%. RR 14. SUCTION VIA ETT: MOD THICK YELLOW. TEMP 99.0 - ROOM TEMP TURNED DOWN, BLANKETS OFF, FANS ON. NSR. HR 60'S. BP STABLE - SEE VS FS. LEVOPHED DRIP 14 MCG/MIN - WILL TITRATE TO EFFECT. VASOPRESSIN D/C THIS AM. FAINT PULSES. COOL, PALE SKIN. HYPOACTIVE BT X4 QUADRANTS. ABD MIDL DIST, SOFT, NONTENDER. NG IN PLACE. NG TO LIS: GREEN SECRETIONS NOTED. ORAL CARE: SMALL AMOUNTS OF SEROSANGENOUS FLUID. F/C IN PLACE - YELLOW, CLEAR URINE NOTED. CENTRAL LINE RIGHT SUBCLAVIAN. ARTERIAL LINE RIGHT FEMORAL ARTERY. NS AT 100 ML/HR. PER DR. HARDWICK - WILL INCREASE NS TO 150 ML/HR ONCE KCL IS COMPLETED). NS TKO AT 10 ML/HR. WILL COMPLETE RENAL PANEL ONCE KCL IS COMPLETED.
--- NOTE | 2018-08-29 21:00 | NUR ---
DR. MULU HARDWICK ORDERED STAT SODIUM LAB AT THIS TIME. DR. HARDWICK INSTRUCTED TO COMPLETE RENAL PANEL AFTER COMPLETION OF KCL IVPB AND ORDERED ELECTROLYTE REPLACEMENTS PER ELECTROLTYE PROTOCOL. WAITING FOR SODIUM LAB AT THS TIME AND WILL CONTACT DR. HARDWICK WITH LAB RESULT.
--- NOTE | 2018-08-29 22:03 | NUR ---
DR. HARDWICK CALLED DR. HARDWICK AT 2[address]. [address] HARDWICK OF SODIUM LAB RESULT. NO NEW ORDERS AT THIS TIME.
[2018-08-30 01:10] LABS: Anion Gap 10 mmol/L (6-16); Blood Urea Nitrogen 11 mg/dL (8-24); Bun/Creatinine Ratio 9.6 (12.0-20.0); CO2, Blood 28 mmol/L (21-32); Calcium, Blood 9.3 mg/dL (8.5-10.1); Chloride, Blood 91 mmol/L (98-108); Creatinine, Blood 1.15 mg/dL (0.60-1.20); Glomerular Filtration Rate >60 (60-); Glucose, Blood 91 mg/dL (70-99); Phosphorus, Blood 3.2 mg/dL (2.5-4.9); Potassium, Blood 3.8 mmol/L (3.5-5.5); Sodium, Blood 129 mmol/L (136-145)
[2018-08-30 03:38] LABS: BASOPHILS ABSOLUTE AUTO 0.03 K/mm3 (0.00-0.23); BASOPHILS PERCENT AUTO 0 % (0-2); EOSINOPHILS ABSOLUTE AUTO 0.07 K/mm3 (0.00-0.68); EOSINOPHILS PERCENT AUTO 1 % (0-6); Hematocrit 31.3 % (37.0-53.0); Hemoglobin 11.3 g/dL (13.5-17.5); IMMATURE GRAN ABSOLUTE AUTO 0.06 K/mm3 (0.00-0.10); IMMATURE GRAN PERCENT AUTO 0 % (0-1); LYMPHOCYTES ABSOLUTE AUTO 0.49 K/mm3 (0.84-5.20); LYMPHOCYTES PERCENT AUTO 3 % (21-46); MONOCYTES ABSOLUTE AUTO 0.19 K/mm3 (0.16-1.47); MONOCYTES PERCENT AUTO 1 % (4-13); Mean Corpuscular HGB 31.8 pg (26.0-34.0); Mean Corpuscular HGB Conc 36.1 g/dL (31.5-36.5); Mean Corpuscular Volume 88 fL (80-100); Mean Platelet Volume 10.6 fL (9.1-12.4); NEUTROPHILS ABSOLUTE AUTO 14.23 K/mm3 (1.96-9.15); NEUTROPHILS PERCENT AUTO 94 % (41-73); Platelet Count 117 K/mm3 (150-400); RDW Coefficient Variation 13.8 % (11.7-14.2); RDW Standard Deviation 44.8 fL (35.1-46.3); Red Blood Cell Count 3.55 M/mm3 (4.30-5.90); White Blood Cell Count 15.07 K/mm3 (4.00-11.30)
[2018-08-30 04:01] LABS: Magnesium, Blood 1.6 mg/dL (1.6-2.4); Uric Acid, Blood 2.2 mg/dL (3.5-7.2)
[2018-08-30 04:09] LABS: Alanine Aminotransfer (ALT/SGP 62 U/L (12-78); Albumin, Blood 2.9 g/dL (3.4-5.0); Alk Phos 127 U/L (50-136); Anion Gap 11 mmol/L (6-16); Aspartate Aminotrans (AST/SGOT 220 U/L (12-37); Bilirubin, Total 1.2 mg/dL (0.1-1.0); Blood Urea Nitrogen 10 mg/dL (8-24); Bun/Creatinine Ratio 8.2 (12.0-20.0); CO2, Blood 26 mmol/L (21-32); Calcium, Blood 8.9 mg/dL (8.5-10.1); Chloride, Blood 94 mmol/L (98-108); Creatinine, Blood 1.22 mg/dL (0.60-1.20); Globulin, Blood 2.8 g/dL (2.2-4.0); Glomerular Filtration Rate >60 (60-); Glucose, Blood 94 mg/dL (70-99); Phosphorus, Blood 3.2 mg/dL (2.5-4.9); Potassium, Blood 3.8 mmol/L (3.5-5.5); Sodium, Blood 131 mmol/L (136-145); Total Protein, Blood 5.7 g/dL (6.4-8.2)
--- NOTE | 2018-08-30 05:56 | NUR ---
SHIFT ASSESSMENT NO ACUTE CHANGES NOTED T/O SHIFT. PT CALM, RESPONDS TO VERBAL STIMULI, TRACKING VOICE, OPENS EYES TO VERBAL STIMULI, DOES NOT NOD HEAD Y/N TO QUESTIONS, ATTEMPTED TO MOUTH WORDS THIS AM, ABLE TO MOVES TOES UPON REQUEST ONE TIME T/O SHIFT, OTHERWISE PT DID NOT FOLLOW COMMANDS. NO SEDATION. UNABLE TO ASSESS SENSATION. PT ROSARIO. GROSS, WEAK MOVEMENT. OCC S/SX OF PAIN/DISCOMFORT NOTED T/O SHIFT (FACIAL GRIMACING AND RESTLESSNESS IN BED). CONT TO ASSESS FOR PAIN/DISCOMFORT AND MEDICATED WITH FENT PER PHYSICIAN'S ORDER / UTILIZED NONPHARM METHODS. PT ATTEMPTED PULL AT ETT THIS AM. PT PLACED IN BILAT WRIST RESTRAINTS TO PROTECT VITAL LINES/CORDS/TUBES AND TO PROTECT FROM SELF-EXTUBATION. LUNGS CLEAR, DIMINISHED LOWER LOBES. OCC COARSENESS NOTED THAT CLEARS WITH SUCTIONING. VENT SETTINGS: AC 14, TV 400, PEEP 8, FIO2 35%. ETT VIA STOMA. ETT OCC MIGRATED OUT OF STOMA. LIZ RT AND JESSI ORNELAS CONT TO REPOSIITION ETT T/O SHIFT. OXY SAT >90%. RR 14 TO 20'S. SX VIA ETT: THICK YELLOW SECREITONS. TMAX 99.7 - ROOM TEMP TURNED DOWN, BLANKETS OFF, FANS ON. SB TO NSR. HR 40'S TO 70'S. BP STABLE - SEE VS FS. LEVOPHED 6 MCG/MIN - CONTINUED TO TITRATE TO EFFECT. FAINT PULSES. COOL, PALE SKIN. HYPOACTIVE BT X4 QUADRANTS. ABD MILD DIST, SOFT, NONTENDER. NG IN PLACE. NG TO LIS: YELLOW TO GREEN COLORED SECRETIONS T/O SHIFT. ORAL CARE: SMALL AMOUNTS OF SEROSANGEOUS FLUID. F/C IN PLACE - YELLOW, CLEAR URINE NOTED. CL RIGHT SUBCLAVIAN. ARTERIAL LINE RIGHT FEMORAL ARTERY. NS AT 150 ML/HR. NS TKO AT 10 ML/HR X2. WILL CONT TO MONITOR PT AND WILL PROVIDE BEDSIDE REPORT TO ONCOMING NURSE THIS AM.
--- NOTE | 2018-08-30 08:00 | NUR ---
INITIAL ASSESSMENT PATIENT SLEEPING IN BED SOUNDLY UPON ENTERING ROOM. PATIENT WOKE TO VERBAL COMMAND. PATIENT FOLLOWING SIMPLE COMMANDS THIS MORNING. PATIENT WEAK. PATIENT TRIES TO MOUTH WORDS TO NURSE. PATIENT DENIES PAIN AT THIS TIME. PATIENT AFEBRILE. PATIENT SATTING WELL ON AC 14, TV 400, PEEP 8, FIO2 OF 35% THIS AM. ETT INTO TRACH STOMA, APPROXIMATELY OUT 7 CM AT EDGE OF STOMA. TUBE 8.0. BREATHS SHALLOW. LUNGS CLEAR THROUGHOUT, LOWER LOBES DIMINISHED. PATIENT SB TO SR, HR 50S TO 60S. BP STABLE ON LEVOPHED DRIP. PULSES 1+ IN STRENGTH. NO EDEMA NOTED. ABDOMEN MILDLY DISTENDED, NONTENDER, WITH NORMOACTIVE BS. NS TO LIS. TEMP PROBE JEFFREY DRAINING CLEAR YELLOW URINE- GOOD AMOUNT OF OUTPUT. SKIN PALE AND COOL TO TOUCH. SOME SCATTERED BRUISES NOTED. LEVOPHED INFUSING AT 7 MCG/ MINUTE, NS INFUSING AT 150 MLS/ HOUR, NS TKO X 2. BED LOW, CALL LIGHT IN REACH. WILL CONTINUE TO MONITOR PATIENT FREQUENTLY THROUGHOUT SHIFT.
--- NOTE | 2018-08-30 08:01 | NUR ---
DR. WASHINGTON IN TO SEE PATIENT. NO ORDERS RECEIVED.
--- NOTE | 2018-08-30 10:15 | NUR ---
DR. HARDWICK HERE TO SEE PATIENT AND TALK TO DR. MAST ABOUT PATIENT CARE. RT IN ROOM DOING SPONTANEOUS BREATHING TRAIL.
[2018-08-30 10:55] LABS: PCO2 Arterial 43.4 mmHg (35-45); pH Blood Arterial 7.41 (7.35-7.45)
--- NOTE | 2018-08-30 11:01 | NUR ---
JEVITY 1.5 STARTED AT 10 ML/ HOUR WITH 30 ML H20 FLUSH Q4H. WILL CONTINUE TO MONITOR.
--- NOTE | 2018-08-30 12:08 | NUR ---
PATIENT RESTING QUIETLY IN BED. PATIENT DENIES PAIN. PATIENT FOLLOWING COMMANDS. PATIENT AFEBRILE. VITAL SIGNS STABLE. LEVOPHED PLACED ON STANDBY. PATIENT ON PS 5/5 AT 35% FIO2. TF INFUSING AT 10 MLS/ HOUR, RESIDUAL OF 0. NO OTHER ACUTE CHANGES TO NOTE ON AT THIS TIME. BED LOW, CALL LIGHT IN REACH. WILL CONTINUE TO MONITOR.
[2018-08-30 13:07] LABS: BASOPHILS ABSOLUTE AUTO 0.03 K/mm3 (0.00-0.23); BASOPHILS PERCENT AUTO 0 % (0-2); EOSINOPHILS ABSOLUTE AUTO 0.16 K/mm3 (0.00-0.68); EOSINOPHILS PERCENT AUTO 1 % (0-6); Hematocrit 31.4 % (37.0-53.0); Hemoglobin 11.5 g/dL (13.5-17.5); IMMATURE GRAN ABSOLUTE AUTO 0.05 K/mm3 (0.00-0.10); IMMATURE GRAN PERCENT AUTO 0 % (0-1); LYMPHOCYTES ABSOLUTE AUTO 0.31 K/mm3 (0.84-5.20); LYMPHOCYTES PERCENT AUTO 3 % (21-46); MONOCYTES ABSOLUTE AUTO 0.11 K/mm3 (0.16-1.47); MONOCYTES PERCENT AUTO 1 % (4-13); Mean Corpuscular HGB 32.4 pg (26.0-34.0); Mean Corpuscular HGB Conc 36.6 g/dL (31.5-36.5); Mean Corpuscular Volume 89 fL (80-100); Mean Platelet Volume 11.1 fL (9.1-12.4); NEUTROPHILS ABSOLUTE AUTO 11.68 K/mm3 (1.96-9.15); NEUTROPHILS PERCENT AUTO 95 % (41-73); Platelet Count 112 K/mm3 (150-400); RDW Coefficient Variation 13.8 % (11.7-14.2); Red Blood Cell Count 3.55 M/mm3 (4.30-5.90); White Blood Cell Count 12.34 K/mm3 (4.00-11.30)
[2018-08-30 16:24] LABS: Magnesium, Blood 1.4 mg/dL (1.6-2.4); Phosphorus, Blood 2.7 mg/dL (2.5-4.9)
[2018-08-30 16:31] LABS: Anion Gap 8 mmol/L (6-16); Blood Urea Nitrogen 10 mg/dL (8-24); Bun/Creatinine Ratio 8.8 (12.0-20.0); CO2, Blood 26 mmol/L (21-32); Calcium, Blood 8.8 mg/dL (8.5-10.1); Chloride, Blood 98 mmol/L (98-108); Creatinine, Blood 1.14 mg/dL (0.60-1.20); Glomerular Filtration Rate >60 (60-); Glucose, Blood 124 mg/dL (70-99); Potassium, Blood 3.4 mmol/L (3.5-5.5); Sodium, Blood 132 mmol/L (136-145)
--- NOTE | 2018-08-30 17:00 | NUR ---
PATIENT PLACED BACK ON AC SETTINGS HAD APNEIC EPISODE FOR SEVERAL SECONDS.
--- NOTE | 2018-08-30 17:51 | NUR ---
DR. MAST CALLED ABOUT PATIENT'S LAB RESULTS. ORDERS RECEIVED.
--- NOTE | 2018-08-30 18:15 | NUR ---
TF INCREASED FROM 10 TO 20 MLS/ HOUR. WILL CONTINUE TO MONITOR.
--- NOTE | 2018-08-30 19:15 | NUR ---
ASSUMED CARE OF PT PT ON MECHANICAL VENTILATION VIA TRACH, VENT SETTINGS AC 14/400/5/35%. ET TUBE SIZE 8 DOWN TRACH AND SECURED VIA SUTURES. RIGHT FEMORAL ART LINE PATENT AND WNL. RIGHT SUBCLAVIAN CENTRAL LINE PATENT AND WNL. D5 @150 ML\HR, NS x2 RUNNING TKO. JEVITY 1.5 RUNNING AT 20 ML/HR WITH GOAL RATE OF 50 ML/HR WITH 30 ML Q4 FLUSH. PT OPENING EYES AND LOOKING TOWARD SOUND BUT IS NOT FOLLOWING DIRECTIONS. PT ABLE TO MOVE LEGS AND CROSS/UNCROSS THEM. SEE FULL SHIFT ASSESSMENT.
--- NOTE | 2018-08-30 19:32 | NUR ---
SHIFT SUMMARY PATIENT CONTINUED TO FOLLOW SIMPLE COMMANDS OFF AND ON DURING SHIFT. PATIENT ABLE TO NOD HEAD A COUPLE TIMES TO YES/ NO QUESTIONS AND TRY TO MOUTH WORDS TO NURSE. PATIENT REMAINS WEAK BUT HAS PURPOSEFUL MOVEMENTS OF EXTREMITIES. PATIENT REMAINED AFEBRILE. PATIENT HAD NO SIGNS OF PAIN THIS SHIFT, WHICH IS MUCH IMPROVEMENT FROM PREVIOUS DAY SHIFT. PATIENT NODDED NO TO PAIN TWO OF THE SEVERAL TIMES HE WAS ASKED DURING THE DAY. PATIENT SATTED WELL ON PS 5/5, 35% FROM APPROXIMATELY 0900 TO 1700. PATIENT HAD APNEIC EPISODE AROUND 1700 AND CHANGED BACK TO AC 14, PEEP 5, TV 400, 35% FIO2. PATIENT HAD SMALL AMOUNT OF WHITE, FROTHY SPUTUM SUCTIONED FROM TRACH STOMA ETT. PATIENT IN SB TO SR, HR MOSTLY 50S TO 60S. BP REMAINED STABLE ON LEVOPHED DRIP WHICH WAS EVENTUALLY ABLE TO BE PLACED ON STANDBY FOR THE REMAINDER OF THE SHIFT. PATIENT PLACED ON MIDODRINE. BPS HAVE BEEN STABLE SINCE. CVP OF 4 THIS SHIFT. JEVITY 1.5 STARTED AND IS NOW AT 20 MLS/ HOUR WITH 30 ML H20 FLUSH Q30M. RESIDUALS 0 TO 170 ML. JEFFREY DRAINING DARK YELLOW URINE. OUTPUT 2.6 LITERS THIS SHIFT. INPUT OF 2.6 IN WELL. NO CHANGE TO SKIN. PATIENT REPOSITIONED T/ O SHIFT. BLOOD SUGARS REMAINED STABLE. LEVOPHED ON SB, D5W INFUSING AT 150 MLS/ HOUR, NS TKO X 2. MAG AND POTASSIUM RIDERS INFUSING. PATIENT HAD BED BATH THIS SHIFT. IN AND OUT DURING DAY. PREACHER/ FRIEND CAME TO PRAY FOR PATIENT AND SPOKE WITH . WENT HOME SHORT TIME AGO BUT STATED SHE WOULD BE BACK TO SPEND THE NIGHT. BED LOW, CALL LIGHT IN REACH. REPORT GIVEN TO ASSUMING DRIVER EDUCATION ROAD INSTRUCTOR NURSES.
[2018-08-30 22:11] LABS: FREE INSULIN <1.0 uU/mL (.); TOTAL INSULIN <1.0 uU/mL (.)
[2018-08-30 23:41] LABS: Vancomycin, Trough 16.8 ug/mL (5.0-10.0)
--- NOTE | 2018-08-31 03:07 | NUR ---
SPOKE WITH DR MAST REGARDING PT'S VENT ALARMING. PT STACKING BREATHS SINCE BEGINNING OF SHIFT DESPITE BEING MEDICATED WITH VERSED AND FENTANYL PRN. WILL START PT ON PROPOFOL PER DR. MAST'S ORDER.
[2018-08-31 04:27] LABS: BASOPHILS ABSOLUTE AUTO 0.03 K/mm3 (0.00-0.23); BASOPHILS PERCENT AUTO 0 % (0-2); EOSINOPHILS ABSOLUTE AUTO 0.55 K/mm3 (0.00-0.68); EOSINOPHILS PERCENT AUTO 6 % (0-6); Hemoglobin 9.9 g/dL (13.5-17.5); IMMATURE GRAN ABSOLUTE AUTO 0.03 K/mm3 (0.00-0.10); IMMATURE GRAN PERCENT AUTO 0 % (0-1); LYMPHOCYTES ABSOLUTE AUTO 0.54 K/mm3 (0.84-5.20); LYMPHOCYTES PERCENT AUTO 6 % (21-46); MONOCYTES PERCENT AUTO 2 % (4-13); Mean Corpuscular HGB 32.5 pg (26.0-34.0); Mean Corpuscular HGB Conc 36.7 g/dL (31.5-36.5); Mean Corpuscular Volume 89 fL (80-100); Mean Platelet Volume 10.7 fL (9.1-12.4); NEUTROPHILS ABSOLUTE AUTO 7.64 K/mm3 (1.96-9.15); NEUTROPHILS PERCENT AUTO 85 % (41-73); Platelet Count 106 K/mm3 (150-400); RDW Coefficient Variation 13.9 % (11.7-14.2); Red Blood Cell Count 3.05 M/mm3 (4.30-5.90); White Blood Cell Count 8.99 K/mm3 (4.00-11.30)
[2018-08-31 04:44] LABS: Alanine Aminotransfer (ALT/SGP 48 U/L (12-78); Albumin, Blood 2.4 g/dL (3.4-5.0); Albumin/Globulin Ratio 0.9 (0.8-1.8); Alk Phos 144 U/L (50-136); Anion Gap 9 mmol/L (6-16); Aspartate Aminotrans (AST/SGOT 128 U/L (12-37); Bilirubin, Total 1.6 mg/dL (0.1-1.0); Blood Urea Nitrogen 9 mg/dL (8-24); CO2, Blood 24 mmol/L (21-32); Calcium, Blood 7.8 mg/dL (8.5-10.1); Chloride, Blood 96 mmol/L (98-108); Creatinine, Blood 1.12 mg/dL (0.60-1.20); Globulin, Blood 2.6 g/dL (2.2-4.0); Glomerular Filtration Rate >60 (60-); Glucose, Blood 165 mg/dL (70-99); Magnesium, Blood 1.5 mg/dL (1.6-2.4); Phosphorus, Blood 1.5 mg/dL (2.5-4.9); Potassium, Blood 3.5 mmol/L (3.5-5.5); Sodium, Blood 129 mmol/L (136-145)
--- NOTE | 2018-08-31 06:05 | NUR ---
SHIFT SUMMARY PT ON MECHANICAL VENTILATION VIA TRACH WITH ETT VIA STOMA. VENT SETTINGS 14/400/5/30%. PT "STACKED BREATHS" AND TRIGGERED VENT ALARM THROUGHOUT ENTIRETY OF SHIFT. PT HAD PERIOD OF BRADYCARDIA WITH HR LOW 29 AND HYPOTENSION ON OCCASION. RESTARTED LEVOPHED TO INCREASE BP, PT RESPONDED WELL TO MEDICATION AND BLOOD PRESSURE IS NOW STABLE WITH LEVOPHED ON STANDBY. PT SEEMS TO HAVE NEUROLOGICAL REGRESSION AND IS NOT ALERT OR ORIENTED AND FAILS TO FOLLOW COMMANDS. PUPILS SHIFTED FROM MIDLINE TO DOWNWARD WITH NYSTAGMUS. JEVITY 1.5 RUNNING AT 30 ML/HR WITH 30 ML FLUSH Q4, GOAL RATE OF 50 ML/HR. RESIDUALS HAVE BEEN BETWEEN 70-85. PT HAD BOWEL MOVEMENT DURING THIS SHIFT.NG HOOKED TO LIS. JEFFREY TEMP PATENT DRAINING YELLOW URINE. R SUBCLAVIAN CENTRAL LINE PATENT AND INFUSING. R FEMORAL ART LINE PATENT. CVP OF 3 DURING THIS SHIFT. POSSIBLE EXTUBATION THIS MORNING PER DR MAST. PT'S AT BEDSIDE. WILL REPORT TO DAYSHIFT NURSE.
--- NOTE | 2018-08-31 13:31 | NUR ---
REASSESSMENT: PT HAS BEEN RESTING QUIETLY THROUGHOUT THE MORNING. HE DOES NOT RESPOND TO VOICE. HE CLENCHES HIS JAW AND TRIES TO WITHDRAW FROM NOXIOUS STIMULI. HE HAS NYSTAGMUS. HE REMAINS VENTILATED. DR. MAST SWITCHED HIM TO SPONTANEOUS WITH PRESSURE SUPPORT OF 5, PEEP 5 AND PT DID WELL ON THAT THROUGOUT THE MORNING. ABOUT NOON PT'S VENT STARTED TO ALARM DUE TO PT HAVING FREQUENT RAPID FIRE SHALLOW BREATHS FOLLOWED BY 1 OR 2 DEEPER BREATHS. IT ALMOST APPEARS THAT PT'S ABDOMEN IS SPASMING, OR HICCUPING DURING THESE EPISODES. RT NOTIFIED AND DR. MAST AWARE OF BREATHING PATTERN AND IS OK WITH IT LONG PT IS MAINTAINING SATURATIONS, WHICH HE IS. LUNGS ARE COARSE IN THE BASES. THICK, ENG SPUTUM BEING SUCTIONED OUT OF TRACH. PT GOES BETWEEN A-FLUTTER AND SR. LEVOPHED RESTARTED THIS MORNING DUE TO HYPOTENSION, BUT IS NOW ONLY AT 2MCG/MIN. PT'S HAS BEEN IN AND OUT OF THE ROOM. SHE SPOKE WITH DR. MAST DURING ROUNDS. CONTINUING TO MONITOR.
--- NOTE | 2018-08-31 16:18 | NUR ---
SHIFT SUMMARY: PT HAS CONTINUED TO REST ON THE VENTILATOR THIS EVENING. NEUROLOGIC IS UNCHANGED WITH ONLY WITHDRAWAL TO NOXIOUS STIMULI. HIS LUNGS REMAIN COARSE, STILL GETTING LARGE AMTS OF THICK ENG SPUTUM. STILL GOING BETWEEN SR AND A FLUTTER. BP HAS BEEN STABLE ON THE SMALL DOSE OF LEVOPHED. JEFFREY WITH CLEAR YELLOW OUTPUT, 2 BMS TODAY. TUBE FEED RESIDUAL HAVE BEEN ABOUT 200ML, BUT PT IS NOT SHOWING ANY SIGNS OF ABDOMINAL DISCOMFORT AND BOWEL TONES ARE ACTIVE. PT'S HAS BEEN IN AND OUT OF THE ROOM THIS AFTERNOON. SHE HAS BEEN UDPATED WHEN SHE IS IN THE ROOM.
--- NOTE | 2018-08-31 17:49 | NUR ---
PT HAS HAD 3 BMS TODAY AND THEY GOT PROGRESSIVELY LOOSER. PT'S BOTTOM IS STARTING TO GET A LITTLE RED FROM ALL THE CLEANING SO RECTAL TUBE PLACED PER PROTOCOL FOR SKIN PROTECTION. PT TOLERATED PROCEDURE WELL. PT IS ALSO STARTING TO MOVE HIS EXTREMITIES WHEREAS ALL DAY HE DID NOT MOVE THEM AT ALL. HE IS STILL NOT FOLLOWING COMMANDS OR TRACKING WITH HIS EYES, BUT HIS NYSTAGMUS IS LESS SEVERE AND HE APPEARS TO BE TRYING TO OPEN HIS EYES WHEN HE HEARS SOUNDS IN THE ROOM.
--- NOTE | 2018-08-31 20:00 | NUR ---
PT ON VENT TO TRACH WITH ETT. ETT IS SUTURED IN PLACE BUT YOU ARE ABLE TO SEE CUFF OF ETT IN STOMA. PT HAS SOME IRREGULAR BREATHS THAT CAUSE THE VENT TO ALARM. IT ALMOST LOOKS LIKE PT IS HICCUPING. NO SEDATION AT THIS TIME. PT WILL TRY TO HOLD EYE'S CLOSED WHEN ASSESSING PUPILS AND WILL WITHDRAWL FROM NOXIOUS STIMULI. LS COARSE T/O AND HAS THICK ENG SPUTUM. HAS TF GOING AT 30ML/HR AND HAS NOT BEEN ADVANCED DUE TO HIGH RESIDUALS. SEE ASSESSMENTS.
--- NOTE | 2018-09-01 00:54 | NUR ---
PT IS STACKING BREATHS ON THE VENT WORSE THAN EARLIER IN THE SHIFT. TRIED GIVING VERSED AND IT DID NOT HELP. STARTED ON LOW DOSE OF PROPOFOL TO SEE IF THAT HELPS.
[2018-09-01 03:54] LABS: BASOPHILS ABSOLUTE AUTO 0.02 K/mm3 (0.00-0.23); BASOPHILS PERCENT AUTO 0 % (0-2); EOSINOPHILS ABSOLUTE AUTO 0.67 K/mm3 (0.00-0.68); EOSINOPHILS PERCENT AUTO 13 % (0-6); Hematocrit 27.5 % (37.0-53.0); IMMATURE GRAN ABSOLUTE AUTO 0.02 K/mm3 (0.00-0.10); IMMATURE GRAN PERCENT AUTO 0 % (0-1); LYMPHOCYTES ABSOLUTE AUTO 0.39 K/mm3 (0.84-5.20); LYMPHOCYTES PERCENT AUTO 7 % (21-46); MONOCYTES ABSOLUTE AUTO 0.31 K/mm3 (0.16-1.47); MONOCYTES PERCENT AUTO 6 % (4-13); Mean Corpuscular HGB 32.3 pg (26.0-34.0); Mean Corpuscular HGB Conc 36.4 g/dL (31.5-36.5); Mean Corpuscular Volume 89 fL (80-100); Mean Platelet Volume 10.8 fL (9.1-12.4); NEUTROPHILS ABSOLUTE AUTO 3.95 K/mm3 (1.96-9.15); NEUTROPHILS PERCENT AUTO 74 % (41-73); Platelet Count 101 K/mm3 (150-400); RDW Coefficient Variation 14.4 % (11.7-14.2); RDW Standard Deviation 46.4 fL (35.1-46.3); White Blood Cell Count 5.36 K/mm3 (4.00-11.30)
[2018-09-01 04:25] LABS: Alanine Aminotransfer (ALT/SGP 45 U/L (12-78); Albumin, Blood 2.4 g/dL (3.4-5.0); Albumin/Globulin Ratio 0.8 (0.8-1.8); Alk Phos 421 U/L (50-136); Anion Gap 9 mmol/L (6-16); Aspartate Aminotrans (AST/SGOT 105 U/L (12-37); Bilirubin, Total 1.3 mg/dL (0.1-1.0); Blood Urea Nitrogen 10 mg/dL (8-24); Bun/Creatinine Ratio 8.8 (12.0-20.0); CO2, Blood 26 mmol/L (21-32); Calcium, Blood 7.4 mg/dL (8.5-10.1); Chloride, Blood 98 mmol/L (98-108); Creatinine, Blood 1.14 mg/dL (0.60-1.20); Glomerular Filtration Rate >60 (60-); Glucose, Blood 143 mg/dL (70-99); Magnesium, Blood 1.6 mg/dL (1.6-2.4); Potassium, Blood 3.5 mmol/L (3.5-5.5); Sodium, Blood 133 mmol/L (136-145); Total Protein, Blood 5.4 g/dL (6.4-8.2)
[2018-09-01 05:51] LABS: PO2 Arterial 75.9 mmHg (80-100)
--- NOTE | 2018-09-01 06:30 | NUR ---
SUMMARY PT REMAINS ON SAME VENT SETTINGS. PT'S BREATHING PATTERN DID NOT CHANGE MUCH AFTER STARTING PROPOFOL AND IT WAS DROPPING HIS BP SO D/C'D AGAIN. STILL HAVING WHAT LOOKS LIKE ABDOMINAL SPASMS OR HICCUPS. GRIMACES AND WITHDRAWLS TO NOXIOUS STIMULI. NO ACUTE CHANGES.
--- NOTE | 2018-09-01 12:22 | NUR ---
REASSESSMENT: PT HAD REPEAT HEAD CT AND TOLERATED IT WELL. HE HAS BEEN OPENING HIS EYES SPONTANEOUSLY, ESPECIALLY WITH DISCOMFORT, BUT WON'T DO IT ON COMMANDS OR FOLLOW ANY OTHER COMMANDS. STILL HAS NYSTAGMUS. HE REMAINS ON THE VENTILATOR, SWITCHED TO SPONTANEOUS MODE THIS MORNING. HE DID WELL, UNTIL ABOUT 1130 WHEN HE STARTED DOING THE SAME BREATHING PATTERN YESTERDAY AFTERNOON WITH SEVERAL RAPID SHALLOW BREATHS IN BETWEEN DEEPER BREATHS. HE MAINTAINS HIS SATURATIONS AND DOES NOT LOOK LABORED. LUNGS ARE DIM. HE IS IN AFLUTTER, BP STABLE, SEE VITALS. ART LINE DC'D PER DR. MAST WITHOUT ANY COMPLICATIONS. JEFFREY DRAINING WELL AND RECTAL TUBE CONTINUES TO PUT OUT LIQUID STOOL. PT'S CAME IN AND WAS FULLY UPDATED BY NURSING STAFF. DISCUSSED CONCERNS ABOUT PT STILL NOT FOLLOWING COMMANDS AND IRREGULAR BREATHING PATTERNS. PALLIATIVE CARE CONSULT PLACED.
--- NOTE | 2018-09-01 16:57 | NUR ---
SHIFT SUMMARY: PT HAD NO ACUTE EVENTS THIS SHIFT. HIS ASSESSMENT REMAINS UNCHANGED FROM EARLIER ASSESSMENTS. TUBE FEED WAS INCREASED TO 40ML/HR THIS AFTERNOON BECAUSE PT HAD LESS THAN 50ML OF RESIDUAL TWO TIMES IN A ROW. CONTINUING TO MONITOR.
--- NOTE | 2018-09-01 21:24 | NUR ---
PT ON VENT TO STOMA WITH ETT SUTURED IN PLACE. SECURED WITH TRACH COLLAR WELL. PT WILL GRIMACE TO PAIN AND MOVES FEET AWAY FROM NOXIOUS STIMULUS. WILL MOVE FEET IN BED SPONTANEOUSLY WELL. SEE ASSESSMENT. R GROIN STABLE WHERE A LINE WAS REMOVED TODAY. CLEAR DRESSING OVER SITE.
[2018-09-02 03:58] LABS: BASOPHILS ABSOLUTE AUTO 0.02 K/mm3 (0.00-0.23); BASOPHILS PERCENT AUTO 0 % (0-2); EOSINOPHILS ABSOLUTE AUTO 0.48 K/mm3 (0.00-0.68); EOSINOPHILS PERCENT AUTO 11 % (0-6); Hematocrit 26.2 % (37.0-53.0); Hemoglobin 9.7 g/dL (13.5-17.5); IMMATURE GRAN ABSOLUTE AUTO 0.13 K/mm3 (0.00-0.10); IMMATURE GRAN PERCENT AUTO 3 % (0-1); LYMPHOCYTES ABSOLUTE AUTO 0.57 K/mm3 (0.84-5.20); LYMPHOCYTES PERCENT AUTO 13 % (21-46); MONOCYTES ABSOLUTE AUTO 0.53 K/mm3 (0.16-1.47); MONOCYTES PERCENT AUTO 12 % (4-13); Mean Corpuscular HGB 32.1 pg (26.0-34.0); Mean Corpuscular Volume 87 fL (80-100); Mean Platelet Volume 10.1 fL (9.1-12.4); NEUTROPHILS ABSOLUTE AUTO 2.73 K/mm3 (1.96-9.15); NEUTROPHILS PERCENT AUTO 61 % (41-73); Platelet Count 96 K/mm3 (150-400); RDW Coefficient Variation 14.4 % (11.7-14.2); RDW Standard Deviation 45.4 fL (35.1-46.3); Red Blood Cell Count 3.02 M/mm3 (4.30-5.90); White Blood Cell Count 4.46 K/mm3 (4.00-11.30)
[2018-09-02 04:15] LABS: Alanine Aminotransfer (ALT/SGP 39 U/L (12-78); Albumin, Blood 2.3 g/dL (3.4-5.0); Albumin/Globulin Ratio 0.7 (0.8-1.8); Alk Phos 535 U/L (50-136); Anion Gap 9 mmol/L (6-16); Aspartate Aminotrans (AST/SGOT 85 U/L (12-37); Bilirubin, Total 1.2 mg/dL (0.1-1.0); Blood Urea Nitrogen 9 mg/dL (8-24); Bun/Creatinine Ratio 9.1 (12.0-20.0); CO2, Blood 25 mmol/L (21-32); Calcium, Blood 7.1 mg/dL (8.5-10.1); Chloride, Blood 98 mmol/L (98-108); Creatinine, Blood 0.99 mg/dL (0.60-1.20); Globulin, Blood 3.3 g/dL (2.2-4.0); Glomerular Filtration Rate >60 (60-); Glucose, Blood 126 mg/dL (70-99); Magnesium, Blood 1.7 mg/dL (1.6-2.4); Phosphorus, Blood 1.9 mg/dL (2.5-4.9); Potassium, Blood 3.4 mmol/L (3.5-5.5); Sodium, Blood 132 mmol/L (136-145); Total Protein, Blood 5.6 g/dL (6.4-8.2)
[2018-09-02 04:17] LABS: Bicarbonate Venous 26.2 mmol/L (24.0-30.0); PCO2 Venous 37.6 mmHg (38-42); PO2 Venous 114 mmHg (38-42); pH Blood Venous 7.45 (7.34-7.37)
--- NOTE | 2018-09-02 06:20 | NUR ---
SUMMARY NO ACUTE CHANGES DURING THE NIGHT. INCREASED TF TO 50ML/HR BECAUSE RESIDUALS WERE MINIMAL. CALLED DR. MAST THIS AM ABOUT LOW PHOSPHOROUS, NEW ORDERS FOR KPHOS AND HUNG. AT BEDSIDE. NO SIGN OF DISTRESS.
--- NOTE | 2018-09-02 09:35 | NUR ---
PT OPENED EYES TO VOICE THIS AM. ABLE TO NOD HEAD APPROPRIATELY TO QUESTIONS. DENIES C/O PAIN. ABLE TO ONLY TWITCH FINGERS AND TOES WHEN ASKED TO MOVE EXT. PT IS PROFOUNDLY WEAK AND DECONDITIONED. AT BEDSIDE, PT LOOKING AT . PT ABLE TO OPEN MOUTH AND CLOSE EYES TO DIRECTION.
--- NOTE | 2018-09-02 11:26 | NUR ---
Initial Palliative Care visit and note: Case conferenced with RN and current update on status obtained. Pt is responsive and able to follow simple commands for the first time today. He is vented/trached via pre-existing stoma. Pt opened eyes when I placed my hand on his. He appears somnolent but tracked me with eyes as RN reported he was able to do with her this am. No nonverbal indicators of pain, anxiety, agitation or distress noted except when pt appeared to be trying to cough. This was reported to RT in ICU. was out of room during my assessment but RN called me back to the room when she returned. Spent time with , listening to what brought pt to hospital and discussing what his previously stated wishes were. states pt does not have a patent airway from the nose/mouth to remainder of upper airway and lower airway/lungs. He has had a stoma due to throat cancer, surgery and tx for same 15 years ago. She states if pt were to suffer brain injury he would not want to continue living on vent or off. She states they have spoken many times re: his advanced care wishes. She is very pleased that he has become more responsive and is hopeful this will continue. Spoke with her about doing what we can to encourage recovery, increased alertness and strenght as he recovers if this trend continues. very appreciative of supportive visit and conversation. 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 She is the palliative care nurse practitioner for her 84 year old father in her home also. She has friends who help as able but no other family members and she reports she and her family are estranged because none of them know how to "get along". Planned with Marisa to stop by in two days and reassess, discuss ongoing needs, questions re: advanced care planning. Instructed Marisa in nonverbal indicators for her to report to staff if noted. Pt responded to his with opening eyes, holding gaze when she was speaking to him.
--- NOTE | 2018-09-02 11:30 | NUR ---
TF OFF FOR 6 HOUR IN PREP FOR ULTRASOUND TO R/O CHOLECYSTITIS.
--- NOTE | 2018-09-02 13:15 | NUR ---
DR MAST IN TO SEE PT EARLIER, PT PLACED ON SPONT. PT HAVING PATRICIA HERRERA RESP. AND STACKING ON VENT. SATS 99%. DR MAST AWARE AND WANTS TO CONT SPON TRIAL. PT PLACED UP IN CHAIR W LIFT, PT FACING WINDOW. PT OCCASIONALLY WILL WAKE UP AND MAKE EYE CONTACT, THEN FALL BACK TO SLEEP, VERY DIFFICULT TO AROUSE WHEN ASLEEP.
--- NOTE | 2018-09-02 17:05 | NUR ---
dr nguyen notified of temp 101.9
--- NOTE | 2018-09-02 17:53 | NUR ---
TYLENOL GIVEN FOR TEMP 102
--- NOTE | 2018-09-02 18:04 | NUR ---
ICE PACKS PLACED UNDER ARMS AND AT GROIN. US OF ABD COMPLETE. TF RESTARTED AT 50CC/HR.
--- NOTE | 2018-09-02 19:00 | NUR ---
ASSUMING CARE OF PT AT THIS TIME. PT REPORT RECEIVED AT BEDSIDE WITH OFFGOING WITH OFFGOING NURSE, JOSE BOWEN. PT LAYING IN BED, SLEEPING UPON ENTERING THE ROOM. PT'S AT BEDSIDE. PT INTUBATED. PT HYPOTENSIVE WITH SBP IN 40'S TO 50'S. JESSI GARCIA CALLING DR. MAST AT THIS TIME. JESSI GARCIA STARTED 500 ML NS BOLUS AT THIS TIME. WILL REVIEW PLAN OF CARE.
--- NOTE | 2018-09-02 19:30 | NUR ---
ASSESSEMENT PT CALM, QUIET, COOPERATIVE, RESPONDS TO VEBRAL STIMULI, OPENS EYES TO VERBAL STIMULI, FOLLOWS COMMANDS, ATTEMPTS TO MOUTH WORDS, SMILING AT , NOT ON SEDATION, TRACKING VOICE, NODDING HEAD Y/N TO FEW QUESTIONS. INCREASED LOC NOTED AFTER STARTING LEVOPHED DRIP. ARNIE SENSATION. GROSS, WEAK MOVEMENT. PT ROSARIO. S/SX OF PAIN/DISCOMFORT NOTED. MEDICATED WITH PAIN MEDS PER PHYSICIAN'S ORDER / UTILIZED NONPHARM METHODS. UPPER AND MIDDLE LOBES COARSE, LOWER LOBES CLEAR AND DIMINISHED. ETT VIA STOMA. VENT SETTINGS: AC 14, TV 400, PEEP 4, FIO2 30%. RR 30'S. OXY SAT >90%. SUCTION VIA ETT: LARGE AMOUNTS OF THICK ENG SECRETIONS. TEMP 100.2 - BLANKETS OFF, ICE PACKS ON, FANS ON, ROOM TEMP TURNED DOWN. NSR WITH FIRST DEGREE AVHB. HR 80'S. LEVOPHED DRIP 20 MCG/MIN - WILL TITRATE TO EFFECT. BP STABLE AFTER TITRATING LEVOPHED DRIP - SEE VS FS. FAINT PULSES. EDEMA NOTED. COOL, PALE SKIN NOTED. HYPOACTIVE BT X4 QUADRANTS. MILD DIST, SOFT, NONTENDER. NG IN PLACE. JEVITY 1.5 AT GORAL RATE 50 ML/HR AND 30 ML FLUSH Q4 HR. RESIDUAL 10 ML/HR. F/C IN PLACE - YELLOW, CLEAR URINE NOTED. CL RIGHT SUBCLAVIAN. NS TKO AT 10 ML/HR.
--- NOTE | 2018-09-02 19:40 | NUR ---
WHILE GIVING REPORT TO CHAIR CAR DRIVER RN, PT'S BP DROPPED SIGNIFICANTLY W SBP 40'S AND DBP 30'S. HEART RATE DROPPED INTO 60'S, PT UNRESPONSIVE; WHICH WAS NOT TOO FAR OFF FROM HIS BASELINE. NS BOLUS STARTED WHILE DR MAST WAS CALLED, LEVOPHED RESTARTED PER DR'S ORDERS. PT'S BP RECOVERED W LEVOPHED AT 20MCG. PT AWOKE AND SMILED AT WHO WAS AT BEDSIDE SINCE 1900.
--- NOTE | 2018-09-02 19:50 | NUR ---
DR MAST / COMFORT CARE PT'S WANTS TO CHANGE PT'S CODE STATUS TO DNR AND ORDER COMFORT CARE SET. VERIFIED 'S WISHES WITH ARISTIDES REAL RN. INFORMED DR. MAST OF 'S WISHES FOR DNR STATUS AND COMOFRT CARE SET. DR. MAST ORDERED COMFORT CARE SET AND ORDERD DNR STATUS. PT'S WANTS TO SPEND SOME TIME WITH PT. THEN, THE WANTS TO EXTUBATE PT AND D/C LEVOPHED. WILL CONT TO TITRATE LEVOPHED TO EFFECT.
--- NOTE | 2018-09-02 21:35 | NUR ---
COMFORT CARE PT'S READY TO EXTUBATE PT. ATIVAN AND PAIN MEDS ADMINISTERED PRIOR TO EXTUBATION. JAKOB RT EXTUBATED PT AT 2134. LEVOPHED TURNED OFF AT 2133. CL - SL. PT'S AT BEDSIDE. WILL CONT TO ADMINISTER MEDICATIONS PER COMFORT CARE MEASURES.
--- NOTE | 2018-09-03 04:57 | NUR ---
SHIFT ASSESSMENT PT CHANGED TO COMFORT CARE STATUS THIS SHIFT. PT'S AT BEDSIDE. PT OCC ANXIETY (ATIVAN ADMINSITERED PRN), OCC RESPONDS TO VERBAL STIMULI, OTHERWISE PT RESPONDS TO PAINFUL STIMULI, OCC OPENS EYES SPONT, OCC FOLLOWS COMMANDS, OCC ATTEMPTS TO MOUTH WORDS, OCC SMILING AT AND STAFF, NOT ON SEDATION, TRACKING VOICE, NODDING HEAD Y/N TO FEW QUESTIONS. ARNIE SENSATION. GROSS, WEAK MOEVMENT. PT ROSARIO. OCC S/SX OF PAIN/DISCOMFORT. CONT TO ASSESS FOR PAIN/DISCOMFORT AND MEDICATED WITH PAIN MEDS PER PHYISICIAN'S ORDER / UTILIZED NONPHARM METHODS. UPPER AND MODDLE LOBES COARSE, LOWER LOBES CLEAR AND DIMINSIHED. PT EXTUBATED THIS SHIFT. PT ON RA. OXY SAT >90%. PATRICIA-HERRERA RESPIRATIONS NOTED. TMAX 100.6. SB TO NSR WITH BBB. HR 50'S TO 80'S. FAINT PULSES. EDEMA NOTED. COOL, PALE SKIN. HYPOACTIVE BT X4 QUADRANTS. NG IN PLACE. TF STOPPED. F/C IN PLACE - DARK YELLOW URINE NTOED. CL RIGHT SUBCLAVIAN - SL. WILL CONT TO MONITOR PT AND WILL PROVIDE BEDSIDE REPORT TO ONCOMING NURSE THIS AM.
--- NOTE | 2018-09-03 05:32 | NUR ---
DR. WASHINGTON / DR. HARDWICK / DR. TANG CALLED ANSWERSING SERVICE FOR DR. WASHINGTON, DR. CASEY, AND DR. TANG. UPDATED ANSWERING SERVICE OF PT'S CONDITION, DNR STATUS, AND COMFORT CARE MEASURES.
--- NOTE | 2018-09-03 11:38 | NUR ---
0800 SL ONLY OPENED EYES WITH REPOSITIONING THIS AM. NOW AIR HUNGER, RESP. DISTRESS OR PAIN NOTED. NO PRN COMFORT MEDS GIVEN. PT ORAL AND TRACH CARE DONE. RECTAL TUBE CONT TO MOD. DRAIN AND IS IN GOOD POSITION. VS NOTED. RESP ARE VERY SHALLOW AND IRREGULAR IN NATURE AND ONLY ON RA WITH 90-93 SATS BUT NO DISTRESS. UO IS YELLOW AND CLEAR OF GOOD AMOUNT DISPITE LOW BP.
--- NOTE | 2018-09-03 11:44 | NUR ---
PT HAS CALLED IN X2 AND INQUIRING OF PT CONTITION. PT IS NOT RESPONDING WITH MOVEMENT OR TO VOICE CALLS. BREATHING REMAINS SHALLOW AND IRREGULAR BUT HAS ADIQUATE SATS 91-4% IN NATURE. U.O. THUS FAR APROX. 350ML. WILL TRANSFER PT TO MED. FLOOR SOON BED AVALIBLE.
--- NOTE | 2018-09-03 12:14 | NUR ---
REPORT CALLED TO ARIEL BOWEN AND WILL SYLVIA TO TRANSFER TO 354 WHEN PT ROOM IS CLEAN. PT TO BE TRANSFERED BY BED PER [facility].
--- NOTE | 2018-09-03 16:44 | NUR ---
SHIFT SUMMARY PATIENT NONRESPONSIVE. WAKES UP WHEN HE MOVES BUT THATS ABOUT IT. WILL CONTINUE TO MONITOR FOR CHANGES.
--- NOTE | 2018-09-03 19:33 | NUR ---
09/03/18 190 YELLING AT DAYSHIFT RN,LISETTE. HOSTILE AND STATES NEEDS "CONSTANT CARE". INFORMED HER WE WILL SPEAK WITH MILITARY EDUCATION COORDINATOR. PAGED MILITARY EDUCATION COORDINATOR, MYLES GRECO. WILL ALSO NOTIFY NURSING MOBILE GAME ENGINEER, MICHELLE BOWEN.
--- NOTE | 2018-09-03 22:00 | NUR ---
09/03/18 221 REQUESTING PT RECEIVE PAIN MEDICATION ON A REGULAR BASIS. PT APPEARS COMFORTABLE WITHOUT DISTRESS. RESP. SHALLOW AND UNLARORED AT 12.
--- NOTE | 2018-09-03 22:04 | NUR ---
09/03/18 LATE ENTRY 1934 NURSING OUTSIDE SALES ACCOUNT REPRESENTATIVE AND SECURITY SPOKE WITH ABOUT HER VERBAL AND HOSTILE DEMEANER TOWARDS STAFF. RN AND/OR BILINGUAL RECEPTIONIST WILL CHECK ON PT HOURLY AND CHECK FOR PAIN/ANXIETY AND REPOSITIONING/SKIN CARE NEEDS. IS AGREEABLE TO THIS ACTION. MICHELLE BOWEN ALSO TOLD THAT WE WILL GET HER A PHONE BOOK PER HER REQUEST.
--- NOTE | 2018-09-04 07:48 | NUR ---
09/04/18 0600 PT MEDICATED FOR PAIN PER 'S REQUEST. REPOSITIONED Q 2 HOURS WELL WITH ORAL AND ANOOP-CARE GIVEN. JEFFREY AND RECTAL TUBE IN PLACE.
--- NOTE | 2018-09-04 11:27 | NUR ---
COMFORT CARE PAL CARE VISIT: Assessed pt for comfort. He was lying in bed, supine. No visitors/family in room this am at 0940. He was nonresponsive to verbal or tactile stimuli. He had shallow respirations via stoma. No nonverbal indicators of pain noted other than slightly furrowed brow. No nonverbal indicators of anxiety, agitation, dyspnea or distress noted. Sat with pt for a few minutes, hand on shoulder. Spoke with RN and asked her to call me if /family arrive so I can check in with them and offer support/assist as indicated.
--- NOTE | 2018-09-04 17:20 | NUR ---
SHIFT SUMMARY PT HAS HAD NO ACUTE CHANGES THIS SHIFT, CALLED SEVERAL TIMES AND EXPRESSED FRUSTRATION W/CARE OF PREVIOUS DAY AND STATED THAT PT HAD CHRONIC PAIN AND THAT IT WAS OF MOST IMPORTANCE TO STAY ON PAIN MED REGIMEN SO SHE KNEW PT WAS COMFORTABLE. CAME IN LATER AND SPOKE TO FRANK PRADO WITH THE SAME CONCERNS. MEDICATED PT PER MAR, EXPRESSED APPRECIATION W/AIDE & RN FOR CARE PT WAS RECEIVING AND STATED THAT OTHER THAN THAT EXPERIENCE THE PT HAS RECEIVED EXCELLENT CARE. PT HAD BED BATH AND LINNEN CHANGE THIS SHIFT AND APPEARS TO BE RESTING COMFORTABLY AT THIS TIME, WILL CONT TO MONITOR UNTIL REPORT GIVEN TO NOC RN.
--- NOTE | 2018-09-04 17:31 | NUR ---
Second comfort care visit today: Notified by staff that pt's had arrived. When I was able to get to room had left. Called to follow up and support her as well. Nurse and reported incident with yesterday's medical floor RN & security that had occurred. asked me to stay so she could return and speak to me in person, which I did. Reassessment of pt. He remains unresponsive except when being turned, moved and cared for. 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 Discussed premedicating with Roxanol prn prior to position changes and turning. RN has done this today with good results. Pt currently appears very comfortable and peaceful. This was also noted by our Pal Care volunteer who visited today. When arrived, she again reported her experience & distress over events that occured yesterday. She expressed CG fatigue and inabilty to watch her dying. She is also caring for her 84 year old father with dementia and cannot leave him alone. She is tearful and angry about perceived lack of "comfort care", inadequate pain management after transfer from ICU to Medical floor, seeing pt in pain and negative interactions with a staff member and security yesterday rosa elena. She is actively grieving the loss of her and scared to leave pt alone for fear his pain will not be treated. I introduced Marisa to our patient advocate, Cherise and provided each of them with each others' ph numbers so they could follow up tomorrow. I offered to try to arrange telly grady volunteer to sit with pt and would like that very much. Telly ibaneza health unit coordinator contacted and she was able to get one volunteer for two hours this evening and will continue trying. I spoke with house repairer to request checks and presence of any extra staff available as able. states she does not want to return after patients and she is having difficulty being present more than short periods while he is dying. She would like us to contact [employer] of the [facility] for cremation services. I passed all of the above on to pt's RN and house repairer. Marisa is very grateful for the care pt is receiving today and all the efforts to address her fear, anxiety and grief thru this. Palliative Care to visit daily for s/s management and remain available to support as indicated.
--- NOTE | 2018-09-04 18:02 | NUR ---
VOLUNTEER SITTING W/PT @ 1800
--- NOTE | 2018-09-05 02:23 | NUR ---
AROUND 2139, THIS RN WAS NOTIFIED THAT THE PT'S WAS IN THE ROOM, AND WAS ASKING FOR PAIN MEDICATION FOR THE PT. THE CHARGE NURSE, FRANK FRIEDMAN, RELAYED THAT THE PT'S WAS VERY AGITATED AND CONFRONTIONAL WITH STAFF, STATING THAT "HE'S IN A LOT OF PAIN" AND "I THOUGHT HE WOULD GET PAIN MEDS EVERY HOUR", AND WAS UPSET WHEN TOLD THAT ONE OF HIS PAIN MEDICATIONS WAS ORDERED Q2 HOURS RATHER THEN EVERY HOUR (BUT DID NOT REALIZE OR WASN'T INFORMED THAT THE PT HAS MULTIPLE PAIN MED ORDERS). WHEN THIS RN MADE IN INTO THE PT'S ROOM AROUND 2154, THE PT'S WAS AGITATED, TEARFUL AND VISIBLY ANXIOUS. SHE WAS ON THE PHONE WITH DR. ROLDAN EMERGENCY LINE, AND APPARENTLY SPOKE WITH DR WASHINGTON ON THE PHONE. AFTER THE PT WAS MEDICATED, AND THE PT'S WAS OFF OF THE PHONE, THIS RN ATTEMPTED TO FURTHER EXPLAIN THE SITUATION AND ORDERS. HOWEVER, SHE WOULD NOT LISTEN, SAYING "PLEASE DON'T TALK TO ME" AND "DON'T TELL ME, I DONT NEED TO HEAR IT". THE PT'S THEN STATED THAT SHE WAS LEAVING, THAT SHE "CAN'T HANDLE THIS", AND "I'M NOT GONNA BE COMING BACK".
--- NOTE | 2018-09-05 06:21 | NUR ---
SHIFT SUMMARY PT IS COMFORT CARE, NONRESPONSIVE TO STAFF. THE PT'S VISITED ONCE DURING THE NIGHT (SEE PREVIOUS NOTE). PT APPEARED COMFORTABLE DURING THE NIGHT. HE WAS MEDICATED X2 FOR PAIN. BREATHING IS SHALLOW, BUT UNCHANGED. NO OTHER ACUTE CHANGES IN PT CONDITION NOTED. WILL CONTINUE TO MONITOR AND TREAT PER EMAR UNTIL HAND OFF TO DAY SHIFT.
--- NOTE | 2018-09-05 09:01 | NUR ---
Checked in with pt this morning. He is alone in his room and sleeping at this time. His resp are even and shallow at this time. No distress noted.
--- NOTE | 2018-09-05 12:04 | NUR ---
VOLUNTEER AT BEDSIDE SINCE 999
--- NOTE | 2018-09-05 12:34 | NUR ---
Spoke with nursing. Jak damian is at the bedside at this time. Pt is resting quietly at this time. Jak grady borough coordinator, Lis, has found volunteers to come sit with pt from now until 6 pm this evening.
--- NOTE | 2018-09-05 17:20 | NUR ---
SHIFT SUMMARY PT HAS HAD NO ACUTE CHANGES THIS SHIFT, MEDICATED PER MAR. VOLUNTEERS HAVE BEEN AT BEDSIDE SINCE 1000, SHLD BE AT BEDSIDE THRU 1800, NO OTHER VISITORS THIS SHIFT. PT APPEARS TO BE SLEEPING COMFORTABLY AT THIS TIME, WILL CONT TO MONITOR UNTIL REPORT GIVEN TO AUGUSTIN RN.
--- NOTE | 2018-09-06 06:02 | NUR ---
CHEMICAL EDUCATOR SUMMARY NO ACUTE CHANGES. PT REMAINS ON COMFORT CARE. PT NON VERBAL BUT DOES OPEN EYES AND CAN INTERACT NON VERBALLY AT TIMES, MAINLY BY BLINKING EYES AND SQUEEZING YOUR HAND. TURN Q2H. JEFFREY CATH PATENT AND DRAINING. RECTAL TUBE INTACT AND DRAINING BROWN STOOL. TREATED FOR PAIN SEVERAL TIMES THROUGH THE NIGHT WITH DILAUDID AND ROXANOL. PT HAS SLEPT COMFORTABLY THROUGH MOST OF THE NIGHT BUT DOES GRIMACE AT TIMES WHEN REPOSITIONED, MEDICATED APPROPRIATELY. WILL CONTINUE TO MONITOR.
--- NOTE | 2018-09-06 09:48 | NUR ---
Introduced this PC to pt. Pt opened his eyes, but was not responsive otherwise. Provided words of comfort and offered bedside presence.
--- NOTE | 2018-09-06 10:53 | NUR ---
ASSUMED CARE OF PT- (LATE ENTRY) 0800 PT SLEEPING IN BED CALL LIGHT IN REACH, LAST MEDICTED FOR PAIN AT 0700 NO S&S OF OMER AT THIS TOME. PER REPORT PT IS PAINFUL WITH MOVEMENT, WILL MEDICATE PRIOR TO REPOSITION. RECTAL TUBE IN PLACE AND DRAINING, CATHETER IN PLACE AND DRAINING.
--- NOTE | 2018-09-06 10:56 | NUR ---
PT MEDICATED FOR PAIN PRIOR TO REPOSITION, FACE WASHED. PT NON VERBAL BUT IS AWAKE AND ALERT, SEEMS TO FOLLOW BASIC COMMANDS.
--- NOTE | 2018-09-06 10:59 | NUR ---
PT MEDICATED PRIOR TO REPOSITION, S&S OF PAIN WITH MOVEMENT, ONCE PT WAS REPOSITIONED S&S OF PAIN GONE WHEN PT AT REST.
--- NOTE | 2018-09-06 11:02 | NUR ---
PT RESTING COMFORTABLY AFTER LAST REPOSITION, WILL CONTINUE TO MEDICATE FOR PAIN PRIOR TO REPOSITION.
--- NOTE | 2018-09-06 11:11 | NUR ---
PLAN TO REPOSITION AGIN SHORTLY, MEDICATED FOR PAIN. PT SHOWS S&S OF PAIN (GRIMACE AND FURROWED BROW) WHEN STAFF HOLD HIS HAND. MEDICATED PER EMAR. WILL CONSIDER ATIVAN WITH NEXT MEDICATION, PT SEEMS A LITTLE EASY TO STARTLE NO OUTWARD SIGNS OF ANXIETY AT THIS TIME, MAY BE UNDERLYING. WILL CONSULT WITH PALLIATIVE CARE RN.
--- NOTE | 2018-09-06 11:55 | NUR ---
PT REPOSITIONED- S&S OF PAIN PRESENT WITH MOVEMENT. CALLED PALLIATIVE CARE RN TO CONSULT FOR COMFORT MANAGEMENT. PT APPEARS COMFORTABLE WHEN AT REST.
--- NOTE | 2018-09-06 12:24 | NUR ---
PT RESPONDS APPROPRIATELY WITH NON-VERBAL CUES. S&S OF PAIN, MEDICATED PER EMAR, CLOSER THAN LAST DOSE, SPOKE TO PALLIATIVE CARE RN. WILL MEDICATE WITH IV ATIVAN IF PT STILL SEEMS UNCOMFORTABLE SHORTLY.
--- NOTE | 2018-09-06 13:48 | NUR ---
Requested by nursing to come evaluate pt. Pt startles easily and grimaces and pulls right arm toward chest when he is repositioned slightly. Resp is even at this time, trach present. No mottling noted to lower extremities at this time. Did not turn pt to assess dependent skin at this time. Nursing medicated with some ativan and plans to turn him in about 30 minutes or so. No family in room at this time. [facility] volunteers are not available at this time.
--- NOTE | 2018-09-06 14:31 | NUR ---
*LATE ENTRY* 1330 CALLED PALIATIVE CARE TO SEE PT, DETERMINED PT NEEDED A DOSE OF ATIVAN. MEDICATED PER EMAR. PT RESTING COMFORTABLY AFTER MEDICATION.
--- NOTE | 2018-09-06 14:32 | NUR ---
PT SLEEPING SOUNDLY, NO S&S OF PAIN OR ANXIETY. WILL REPOSITION ON NEXT ROUNDS.
--- NOTE | 2018-09-06 15:25 | NUR ---
PT REPOSITIONED, SEEMED UNCOMFORTABLE WITH MOVEMENT BUT AFTER REPOSITION COMPLETED PT APPEARS TO BE COMFORTABLE. ORAL CARE COMPLETE. ATIVAN SEEMS TO HAVE HELPED A BIT WILL MEDICATE WITH PAIN MEDICTION SHORTLY.
--- NOTE | 2018-09-06 15:32 | NUR ---
PT GRIMACING WHILE AT REST S&S OF PAIN NOTED WHEN REPOSITIONING ARMS, PLACED A PILLOW ON PT CHEST FOR HIM TO HUG TO HIS CHEST AND MEDICATED FOR PAIN, PT SLEEPING BUT ROUSABLE, RESP E&U, FURROWED BROW AND GRIMMACE NOTED AT THIS TIME WILL REASSESS AFTER PAIN MEDICATION HAS TIME TO TAKE EFFECT.
--- NOTE | 2018-09-06 16:26 | NUR ---
PT SLEEPING SOUNDLY- NO S&S OF PAIN AT THIS TIME. WILL CONTINUE TO MONITOR. FAMILY HAS NOT BEEN PRESENT T/O THE DAY.
--- NOTE | 2018-09-06 17:29 | NUR ---
pt resting comfortably, plan to reposition shortly. pt very relaxed in appearance at this time, will cont to monitor.
--- NOTE | 2018-09-06 18:41 | NUR ---
SHIFT SUMMARY- PT IS ON COMFORT CARE, FREQUENT ROUNDING AND REPOSITIONING WITH PRE MEDICATION SEEMS TO WORK WELL FOR HIM. MEDICATED WITH IV ATIVAN ONCE TODAY AVAILABLE EVERY 2 HOURS NEEDED FOR ANXIETY. SEE ALL PREVIOUS NOTES FOR DETAILS.
--- NOTE | 2018-09-06 19:32 | NUR ---
193 ASSUMED CARE OF PT. BEDSIDE REPORT GIVEN. APPEARS TO BE RESTING AT THIS TIME. WILL MEDICATE FOR COMFORT AND REPOSITION PT. WCTM.
--- NOTE | 2018-09-06 20:06 | NUR ---
COMFORT CARE APPEARS TO BE RESTING WITHOUT S/SX OF DISTRESS/PAIN. EQUAL RISE AND FALL. BED IN LOWEST POSITION. MEDICATING FOR PAIN THEN WILL REPOSITION. WCTM.
--- NOTE | 2018-09-06 22:35 | NUR ---
COMFORT CARE APPEARS TO BE RESTING. WAKES TO VERBAL STIMULI. FACIAL GRIMACING WHEN ASKED IF PAINFUL. WILL MEDICATE FOR PAIN. REPOSITIONING AFTER MEDICATION ADMINISTRATION. WARM TO TOUCH; REMOVED TOP BLANKET, SHEET REMAINING. BED IN LOWEST POSITION. CALL LIGHT IN REACH. TM
--- NOTE | 2018-09-07 01:04 | NUR ---
COMFORT CARE 0020 APPEARS TO BE RESTING COMFORTABLY. NO ACUTE DISTRESS AT THIS TIME. WCTM.
--- NOTE | 2018-09-07 01:46 | NUR ---
COMFORT CARE APPEARS TO BE PAINFUL WITH MOVEMENT. RESPONDS TO VERBAL STIMULI AND NODS YES IN RESPONSE TO "ARE YOU IN PAIN". MEDICATED FOR PAIN, PER EMAR. ORAL CARE COMPLETED. BED IN LOWEST POSITION. CALL LIGHT IN REACH. WCTM.
--- NOTE | 2018-09-07 04:05 | NUR ---
COMFORT CARE 0350 APPEARS TO BE RESTING. NO ACUTE DISTRESS AT THIS TIME. OPENS EYES TO VERBAL/PAINFUL STIMULI. APPEARS PAINFUL WITH MOVEMENT; DURING REPOSITIONING. ASKED IF IN PAIN; NODDED "YES". WILL MEDICATE PER EMAR. BED IN LOWEST POSITION. CALL LIGHT IN REACH. WCTM.
--- NOTE | 2018-09-07 04:16 | NUR ---
SHIFT SUMMARY REMAINS NON-VERBAL, BUT DOES RESPOND TO VERBAL AND PAINFUL STIMULI. NO ACUTE CHANGES NOTED OVERNIGHT. REPOSITIONING. ORAL CARE. CATHETER CARE. REMAINS PAINFUL; MEDICATED PER EMAR. NOTABLY WARM TO TOUCH; REMAINS WITH SHEET ONLY. BED IN LOWEST POSITION. ALARM ON. WCTM.
--- NOTE | 2018-09-07 06:24 | NUR ---
0604 COMFORT CARE APPEARS TO BE RESTING WITHOUT S/SX OF PAIN/DISCOMFORT. ORAL CARE COMPLETE; DOES HAVE OPEN AREA/SCABING TO R SIDE OF BOTTOM LIP, MOUTH MOISTURIZER APPLIED. WCTM. BED IN LOWEST POSITION. CALL LIGHT IN PLACE.
--- NOTE | 2018-09-07 11:04 | NUR ---
Pt visit this AM. Pt resting in bed with his eyes closed and appears comfortable. FLACC score 0/10. Pt keeps his eyes closed when spoken to and is non responsive at this time. Spoke with Pt's nurse deann and she reports Pt will experience pain when being repositioned and being bathed. She reports premedicating Pt with roxinol and ativan is helping and managing Pt's symptoms. Plan is for continued monitoring of Pt's comfort and will remain available.
--- NOTE | 2018-09-07 15:54 | NUR ---
PATIENT HAD BED BATH WITH NURSING AID AND NURSE THIS AM. CLEANED UP, CATHETER CARE DONE. REPOSITIONING. PATIENT MEDICATED FOR PAIN AND ANXIETY.
--- NOTE | 2018-09-07 15:55 | NUR ---
PATIENT REPOSITIONED. WILL MONITOR FOR ANY CHANGES. NO CHANGES IN BREATHING. ORAL CARE PERFORMED.
--- NOTE | 2018-09-07 15:55 | NUR ---
PATIENT RESTING COMFORTABLY. WILL CONTINUE TO MONITOR. BREATHING SHALLOW AND SLOW, NO CURRENT ACUTE CONCERNS.
--- NOTE | 2018-09-07 15:56 | NUR ---
PATIENT REPOSITIONED. MILDLY UNCOMFORTABLE. STARTLED AWAKE. WILL ASSESS FOR ANY OTHER CONCERNS. NO ACUTE CONCERNS AT THIS TIME. MEDICATED PER EMAR.
--- NOTE | 2018-09-07 15:56 | NUR ---
PATIENT ASSESSED. MONITORED FOR CHANGES. PATIENT SEEMED MILDLY STARTLED. PATIENT NOW RELAXED AND RESTING COMFORTABLY.
--- NOTE | 2018-09-07 15:57 | NUR ---
CHECKED IN ON THE PATIENT. RESTING COMFORTABLY. WILL CONTINUE TO MONITOR. PATIENT WAS REOPSITIONED. NO ACUTE CONCERNS. PATIENT FACE IS RELAXED. CATHETER CARE HAS BEEN DONE. PATIENT HAS MOISTURIZER ON HIS LIPS TO KEEP HIM FROM BEING TOO DRY.
--- NOTE | 2018-09-07 15:58 | NUR ---
PATIENT RESTING COMFORTABLY.
--- NOTE | 2018-09-07 15:58 | NUR ---
PATIENT STARTLED AWAKE UP ON MY ENTRANCE TO THE ROOM. WILL MONITOR FOR ANY CHANGES AT THIS TIME. PATIENT RELAXED ONCE HE WAS REASSURED WITH THERAPEUTIC TOUCH.
--- NOTE | 2018-09-07 16:01 | NUR ---
SHIFT SUMMARY PATIENT HAS SLEPT MOST OF TODAY. NO ACUTE CONCERNS. BREATHING HAS BECOME SHALLOW. WILL CONTINUE TO LOOK FOR ANY SIGNS OR SYMPTOMS OF IMMINENT PASSIG.
--- NOTE | 2018-09-07 19:57 | NUR ---
COMFORT CARE APPEARS TO BE RESTING. POSITIONED TO THE RIGHT SIDE. ORAL CARE DONE. FAMILY/FRIENDS AT BEDSIDE. DOES NOT APPEAR TO BE IN ANY DISTRESS; OR ANY S/SX OF PAIN. BED IN LOWEST POSITION. ALARM ON. WCTM.
--- NOTE | 2018-09-07 21:36 | NUR ---
COMFORT CARE RESTING, BUT APPEARS TO BE IN PAIN R/T MOVEMENT WHILE TURNING. WILL MEDICATE FOR PAIN PER EMAR. REPOSITIONED. ORAL CARE COMPLETED. BED IN LOWEST POSITION. ALARM ON. CALL LIGHT IN REACH. WCTM.
--- NOTE | 2018-09-08 00:45 | NUR ---
2332 COMFORT CARE MEDICATED PER EMAR FOR PAIN PRIOR TO REPOSITIONING. CATH AND ORAL CARE COMPLETED. RESPIRATIONS EQUAL. BED IN LOWEST POSITION. CALL LIGHT IN REACH. TM.
--- NOTE | 2018-09-08 01:53 | NUR ---
COMFORT CARE APPEARS TO BE RESTING COMFORTABLY. MEDICATED FOR PAIN PRIOR TO REPOSITIONING. REPOSITIONED ONTO L SIDE. BED IN LOWEST POSITION. ALARMS ON. CALL LIGHT IN PLACE. [facility].
--- NOTE | 2018-09-08 05:25 | NUR ---
COMFORT CARE 0341 APPEARS TO BE RESTING. WILL MEDICATE PRIOR TO REPOSITIONING. ORAL CARE COMPLETED; CHAPSTICK APPLIED. BED IN LOWEST POSITION. ALARM ON. CALL LIGHT IN PLACE. WCTM.
--- NOTE | 2018-09-08 05:37 | NUR ---
SHIFT SUMMARY REPSONDS TO PAINFUL STIMULI, BUT REMAINS NON-VERBAL. NO ACUTE CHANGES OVERNIGHT. MEDICATED FOR PAIN PER EMAR. REPOSITIONING. ORAL CARE. CATHETER CARE. REMAINS WARM TO TOUCH; SHEET ONLY FOR COVER. JEFFREY CATHETER IN PLACE; PATENT AND SECURE. RECTAL TUBE REMAINS INTACT; PATENT. BED IN LOWEST POSITION. ALARM ON. CALL LIGHT IN REACH. WCTM. REPORT TO ONCOMING RN.
--- NOTE | 2018-09-08 10:16 | NUR ---
Pt visit this AM. Pt resting in bed with his eyes closed. Gently spoke with Pt with a gentle touch and rub of his arm with itention to not startle Pt. Pt does not respond and keeps his eyes closed. He appears to be resting comfortable. Spoke with Pt's nurse Tiffany and she reports the Pt's symptoms are currently managed and has not required any comfort meds this AM. Plan to remain available and to monitor Pt's comfort.
--- NOTE | 2018-09-08 16:11 | NUR ---
PATIENT REPOSITIONED. PATIENT STILL STARTLES EASILY, NO GRIMACING NOTED, BROWS NOT FURROWED. WILL CONTINUE TO MONITOR FOR SIGNS OF PAIN,.
--- NOTE | 2018-09-08 16:11 | NUR ---
PATIENT STILL SHOWING NO SIGNS OF PAIN. MOUTHING WORDS. PATIENT ENCOURAGED TO RELAX, THERAPEUTIC TOUCH GIVEN.
--- NOTE | 2018-09-08 16:12 | NUR ---
THERE IS A PATIENT VOLUNTEER IN WITH THE PATIENT WHILE THE PATIENT RESTS. NO GRIMACING OR FURROWING OF THE BROW. PATIENT HAS BEEN TURNED Q2 AND ANOOP CARE, CATH CARE, AND ORAL CARE HAS BEEN PERFORMED TODAY.
--- NOTE | 2018-09-08 16:12 | NUR ---
PALLIATIVE CARE IN TO SEE THE PATIENT. HE HAS SPOKEN WITH VOLUNTEERS FROM HOSPICE SERVICES THAT ARE SITTING WITH THE PATIENT IN ORDER TO MAKE HIM FEEL SAFE AND COMFORTABLE IN THIS TIME.
--- NOTE | 2018-09-08 16:13 | NUR ---
HOSPICE SERVICES VOLUNTEER WITH THE PATIENT. SHE HAS BEEN HOLDING HIS HAND AND GIVING THERAPEUTIC TOUCH. WILL CONTINUE TO MONITOR FOR CHANGES.
--- NOTE | 2018-09-08 16:14 | NUR ---
PATIENT IS NOW FLOATED ON PILLOWS. RECTAL TUBE BAG HAS BEEN CHANGED WITH 600 WORTH OF OUTPUT. PATIENT JEFFREY STILL DRAINING. URINE VERY THICK/VICIOUS. WILL CONTINUE TO MONITOR.
--- NOTE | 2018-09-08 16:14 | NUR ---
PATIENT WAS GIVEN MEDICATION FOR PAIN. VOLUNTEER STILL HOLDING PATIENTS HAND. WILL CONTINUE TO MONITOR FOR CHANGES.
--- NOTE | 2018-09-08 18:25 | NUR ---
SHIFT SUMMARY PATIENT STILL COMFORT CARE. NO ACUTE CONCERNS. BREATHING EVEN. NO OTHER CHANGES. PATIENT HAS BEEN TURNED Q2, RECTAL TUBE BAG CHANGED, 700 OUTPUT. CATH AND ANOOP CARE DONE. ORAL CARE DONE. PATIENT HAS HAD VOLUNTEERS WITH HIM TODAY IN ORDER TO GIVE HIM SOME COMFORT.
--- NOTE | 2018-09-08 20:07 | NUR ---
CORRESPONDENCE THIS NURSE SPOKE TO OVER PHONE. STATED WANTS PT TO BE GIVEN PAIN MEDICATION EVERY HOUR; ASSURED HER THAT I WOULD TRY MY BEST TO GET HIM THE MEDICATION EVERY HOUR. STATED ALSO THAT SHE WANTS TO USE THE MORTUARY IN [place] OVER THE ONE ON [place] WHICH SHE HAD PREVIOUSLY STATED.
--- NOTE | 2018-09-08 20:25 | NUR ---
COMFORT CARE 2000 RESTING, EYES OPEN. APPEARS TO BE PAINFUL. WILL MEDICATE AGAIN PER EMAR. REPOSITIONED TO L SIDE. VOLUNTEER SERVICES AT BEDSIDE. BED IN LOWEST POSITION. TM.
--- NOTE | 2018-09-08 22:54 | NUR ---
COMFORT CARE 2014 MEDICATED WITH ATIVAN FOR ANXIETY @ 2134; APPEARS TO BE RESTING COMFORTABLY @ THIS TIME. REPOSITIONED TO R SIDE. ORAL CARE AND ANOOP CARE COMPLETED. JEFFREY PATENT AND SECURE. BED IN LOWEST POSITION. CALL LIGHT IN REACH. WCTM.
--- NOTE | 2018-09-09 00:38 | NUR ---
COMFORT CARE APPEARED TO BE RESTING. SHOWED MILD SIGNS OF DISCOMFORT UPON MOVEMENT OF BED. MEDICATED PER EMAR. WCTM.
--- NOTE | 2018-09-09 00:52 | NUR ---
2329 IN TO VISIT WITH AND TO CHECK ON PT PAIN LEVEL. APPEARED VERY AGITATED AT BEGINNING OF CONVERSATION. STATED "I HAVE BEEN WITH HIM (PATIENT) FOR 15 YEARS AND I KNOW THAT HE IS IN PAIN." DURING THIS TIME SHE HAD ASKED ME WHEN THE LAST TIME PAIN MEDICATION HAD BEEN RECEIVED I LET HER KNOW THAT I MEDICATED PT FOR ANXIETY R/T TWITCHING AND JERKING. EXPLAINED THAT THE ANXIETY MEDICATION RELIEVES PAIN WELL RELAXES PATIENT AND THAT HE HAD RECEIVED THAT AT 2134. PAIN LEVEL APPEARED TO BE AROUND A 5 (FACE SCALE USED FOR EVALUATION); MEDICATED PER EMAR. WAS RECORDING ADMINISTRATION AND WHEN THIS NURSE NOTICED THAT SHE WAS RECORDING THIS NURSE I HELD UP MY HAND AND SAID TO HER THAT I WOULD APPRECIATE HER NOT RECORDING ME. STATED SHE JUST WANTED TO GET MY NAME. ALL OF THIS WAS DISCUSSED WITH CERTIFIED PHYSICIAN'S ASSISTANT, STAFF ZIGZAG TOPSTITCHER AND NURSING ZIGZAG TOPSTITCHER. WHEN STAFF ZIGZAG TOPSTITCHER WHEN IN TO SPEAK WITH SHE HAD LEFT; SECURITY SHOWED UP SHORTLY AFTER TO ASK THAT SHE REMOVE VIDEO/RECORDING.
--- NOTE | 2018-09-09 02:26 | NUR ---
COMFORT CARE APPEARS TO BE RESTING COMFORTABLY. NO S/SX OF PAIN AT THIS TIME. DOES NOT AWAKE TO VERBAL STIMULATION. ORAL CARE COMPLETED. WARM TO TOUCH; PLACE SHEET OVER. BED IN LOWEST POSITION. ALARM ON. CALL LIGHT IN REACH. WCTM.
--- NOTE | 2018-09-09 04:18 | NUR ---
CORRESPONDENCE APPROXIMATELY 0330 PT , FATEMEH CALLED @ APPROXIMATELY 0330 STATING THAT [facility] WOULD BE ARRIVING TO TRANSFER PT TO A HOSPITAL IN [place]. THERE ARE NO CURRENT OR PENDING ORDERS FOR TRANSFER OF PT. FATEMEH'S CALLS HAVE BEEN FORWARDED TO THE NURSING PHOTO OFFSET PRINTER TO CLARIFY THE POLICY FOR TRANSFERRING A PT. AFTER SPEAKING TO MICHELLE SHEFFIELD THE NURSING PHOTO OFFSET PRINTER, FATEMEH CALLED BACK TO THE DESK AGAIN WANTING THE PT TRANSFERRED. HER CALL WAS AGAIN FORWARDED TO THE NURSING PHOTO OFFSET PRINTER. DUE TO FATEMEH'S REQUESTS FOR HOURLY UPDATES FROM THE STAFF, THE NURSING PHOTO OFFSET PRINTER FOR THIS SHIFT 09/08- WILL BE THE PRIMARY CONTACT FOR ANY FURTHER COMMUNICATION WITH PT ALECIA.
--- NOTE | 2018-09-09 04:40 | NUR ---
COMFORT CARE 0420 APPEARS TO BE IN SOME DISCOMFORT; SCORED 3 ON FACE SCALE ASSESSMENT. WILL MEDICATE PER EMAR. REPOSITIONED TO L SIDE; PREVIOUSLY FLOATED R AND L SIDES. RESPIRATIONS EQUAL. NO ACUTE DISTRESS NOTED. JEFFREY PATENT AND SECURED WELL RECTAL TUBE. BED IN LOWEST POSITION. ALARM ON. CALL LIGHT IN REACH. WCTM.
--- NOTE | 2018-09-09 04:45 | NUR ---
SHIFT SUMMARY NO CHANGES OVERNIGHT. RESPONDS TO PAINFUL STIMULI; REMAINS NON-VERBAL. MEDICATED FOR PAIN PER EMAR. REPOSITIONING Q2. ORAL AND CATHETER CARES COMPLETED. JEFFREY SECURE AND PATENT WELL RECTAL TUBE. NO OUTPUT PER RECTAL TUBE. REMAINS NPO. BED IN LOWEST POSITION. ALARM ON. CALL LIGHT IN PLACE. WCTM. REPORT TO ONCOMING RN.
--- NOTE | 2018-09-09 06:35 | NUR ---
COMFORT CARE 0625 APPEARS TO BE UNCOMFORTABLE; SCORED 5 ON FACE SCALE ASSESSMENT. WILL MEDICATE PER EMAR. REPOSITIONED; PRESSURE OFF OF R SIDE. RESPIRATIONS REMAIN EQUAL. NO ACUTE DISRESS NOTED. JEFFREY PATENT AND SECURED; YEILDED 475 ML THIS SHIFT. BED IN LOWEST POSITION. ALARMS ON. CALL LIGHT IN REACH. WCTM.
--- NOTE | 2018-09-09 08:13 | NUR ---
SHALLOW, UNLABORED BREATHING. IN TO SEE PATIENT. JEFFREY CATH CARE DONE. ORAL CARE DONE W/LIP MOISTURIZER APPLIED. APPEARS COMFORTABLE. NO PAIN MEDS NEEDED AT THIS TIME. VERY LITTLE URINE OUTPUT, ABOUT 20 ML IN BAG. NO STOOL IN BAG. WILL CONTINUE TO MONITOR.
--- NOTE | 2018-09-09 08:58 | NUR ---
TURNED ON TO RT SIDE. ORAL CARE DONE. MEDICATED FOR PAIN W/GOOD RESULTS. APPEARS COMFORTABLE. NO GRIMACING, NO MOANING, BROW RELAXED. NO OUTPUT STOOL BAG. ABOUT 40 ML IN JEFFREY. UNLABORED RESPIRATIONS. WILL CONTINUE TO MONITOR.
--- NOTE | 2018-09-09 09:56 | NUR ---
PATIENT APPEARS RESTING COMFORTABLEY. TREASURY CONSULTANT STOPPED IN. WILL CONTINUE TO MONITOR.
--- NOTE | 2018-09-09 10:01 | NUR ---
Pt was sleeping. He appeared to be comfortable and relaxed. Non-verbal prayer was offered to the pt.
--- NOTE | 2018-09-09 10:52 | NUR ---
PATIENT , FATEMEH, NOTIFIED OF PATIENT PASSING. [facility] WANTS PATIENT TO GO T [facility] IN [place] AND TO THANK ALL THE NURSES FOR THEIR CARE.
--- NOTE | 2018-09-09 11:38 | NUR ---
1044 NOTED TO BE NOT BREATHING. [employer] NOTIFIED. JEFFREY, RECTAL TUBE AND CENTRAL LINE D'C. ICE PACKS TO EYES FOR POSSIBLE TRANSPLANE. WAS NOTIFIED AND [employer] MA[employer]GER TOLD RELATIVE WANTED [facility] IN [place]. [employer] MA[employer]GER CALLED AND TRANSPLANT LINE.
== END 2018-09-09 10:49 | DRG 870 ==
LOC: ER 01:56 → ICUW 04:01 → ICUE 04:01 → MEDS 09-03 12:45
PROVIDERS: Emergency Medicine; Internal Medicine; Internal Medicine Critical Care Medicine; Internal Medicine Pulmonary Disease; ADMIT Family Medicine
PROC: 5A1955Z Respiratory Ventilation, Greater than 96 Consecutive Hours (ICD-10-PCS; principal; 2018-08-27)
PROC: 04HY32Z Insertion of Monitoring Device into Lower Artery, Percutaneous Approach (ICD-10-PCS; 2018-08-27)
PROC: 0BH17EZ Insertion of Endotracheal Airway into Trachea, Via Natural or Artificial Opening (ICD-10-PCS; 2018-08-27)
PROC: 05H533Z Insertion of Infusion Device into Right Subclavian Vein, Percutaneous Approach (ICD-10-PCS; 2018-08-27)
PROC: 3E043XZ Introduction of Vasopressor into Central Vein, Percutaneous Approach (ICD-10-PCS; 2018-08-27)
PROC: 3E043XZ Introduction of Vasopressor into Central Vein, Percutaneous Approach (ICD-10-PCS; 2018-08-28)
PROC: 3E043XZ Introduction of Vasopressor into Central Vein, Percutaneous Approach (ICD-10-PCS; 2018-08-29)
PROC: 3E043XZ Introduction of Vasopressor into Central Vein, Percutaneous Approach (ICD-10-PCS; 2018-08-30)
PROC: 3E043XZ Introduction of Vasopressor into Central Vein, Percutaneous Approach (ICD-10-PCS; 2018-08-31)
PROC: 3E043XZ Introduction of Vasopressor into Central Vein, Percutaneous Approach (ICD-10-PCS; 2018-09-01)
PROC: 3E043XZ Introduction of Vasopressor into Central Vein, Percutaneous Approach (ICD-10-PCS; 2018-09-02)
DX: A41.52 Sepsis due to Pseudomonas (principal); J96.01 Acute respiratory failure with hypoxia; J18.1 Lobar pneumonia, unspecified organism; N17.9 Acute kidney failure, unspecified; G93.49 Other encephalopathy; R64 Cachexia; E87.1 Hypo-osmolality and hyponatremia; G93.1 Anoxic brain damage, not elsewhere classified; Z51.5 Encounter for palliative care; R65.20 Severe sepsis without septic shock; R57.8 Other shock; R56.9 Unspecified convulsions; Z93.0 Tracheostomy status; I95.9 Hypotension, unspecified; I48.91 Unspecified atrial fibrillation; D72.1 Eosinophilia; F44.4 Conversion disorder with motor symptom or deficit; E83.39 Other disorders of phosphorus metabolism; E16.2 Hypoglycemia, unspecified; E87.6 Hypokalemia; I10 Essential (primary) hypertension; R00.0 Tachycardia, unspecified; Z99.3 Dependence on wheelchair; F51.04 Psychophysiologic insomnia; E03.9 Hypothyroidism, unspecified; Z91.81 History of falling; Z90.02 Acquired absence of larynx; Z98.1 Arthrodesis status; Z92.3 Personal history of irradiation; Z85.21 Personal history of malignant neoplasm of larynx; Z85.89 Personal history of malignant neoplasm of other organs and systems; Z87.891 Personal history of nicotine dependence; Z79.899 Other long term (current) drug therapy
CPT/HCPCS: 31720; 36415; 36556; 36600; 36620; 51702; 70450; 71045; 74177; 76700; 76705; 80047; 80048; 80053; 80069; 80202; 81001; 82330; 82530; 82550; 82803; 82947; 83525; 83527; 83605; 83735; 83930; 83935; 84100; 84295; 84300; 84443; 84484; 84550; 85014; 85018; 85025; 87040; 87070; 87077; 87186; 87205; 87493; 93005; 93010; 93306; 94002; 94003; 94667; 95819; 96374; 96375; 99285-25; C1751; C9113; J0171; J0610; J1170; J1650; J2060; J2250; J2270; J2543; J3010; J3370; J3411; J3475; J3480; J7030; J7040; J7042; J7060; J7070; P9041; Q9967